=== PATIENT | female | born 1940 | race Caucasian/White ===

== ENCOUNTER → 2016-06-13 | Outpatient (CLI) | payer MEDICARE, OTHER ==
[~2016-06-13] VITALS: Ht 152.4 cm; Wt 72.5 kg
[~2016-06-13] MED LIST: ACET-66 PO; ALBU8.5H IH; AMLO-511 PO; APIX5TAB PO; ASPI-825 PO; BRIN8DRO OP; BUDE180H IH; LORA10TA7 PO; LOSA50TA37 PO; METO50 PO; MULT-1259 PO; OMEP20TA86 PO; ROSU10 PO; VITA1TAB22 PO
[2016-06-13 11:49] VITALS: BP 118/71
== END | disposition home or self-care (01) ==
LOC: SRCNTR 11:35
PROVIDERS: ATTEND Internal Medicine Critical Care Medicine
DX: J44.9 Chronic obstructive pulmonary disease, unspecified (principal); J30.9 Allergic rhinitis, unspecified; I10 Essential (primary) hypertension; N36.9 Urethral disorder, unspecified; M81.0 Age-related osteoporosis without current pathological fracture
CPT/HCPCS: G0463

== ENCOUNTER → 2016-08-08 | Outpatient (CLI) | payer MEDICARE, OTHER ==
[2016-08-08 14:07] LABS: APPEARANCE,URINE CLEAR (CLEAR); GLUCOSE, URINE (UA) NEGATIVE (NEGATIVE); KETONES,URINE NEGATIVE (NEGATIVE); LEUKOCYTE ESTERASE ,URINE NEGATIVE (NEGATIVE); OCCULT BLOOD,URINE NEGATIVE (NEGATIVE); PROTEIN,URINE NEGATIVE (NEGATIVE)
[2016-08-08 14:08] LABS: BASOPHILS % (AUTO) 0.6 % (0.0-2.0); EOSINOPHILS % (AUTO) 5.6 % (1.0-6.0); HEMATOCRIT 37.1 % (36-46); HEMOGLOBIN 11.9 g/dL (12.0-16.0); LYMPHOCYTES # (AUTO) 1.7 K/uL (1.0-4.8); LYMPHOCYTES % (AUTO) 29.1 % (22.0-44.0); MEAN CORPUSCULAR HEMOGLOBIN 27.2 pg (26.0-34.0); MEAN CORPUSCULAR HGB CONC 32.1 G/dL (31.0-37.0); MEAN CORPUSCULAR VOLUME 85 fL (80-100); MONOCYTES # (AUTO) 0.4 K/uL (0.1-1.0); MONOCYTES % (AUTO) 6.9 % (2.0-9.0); NEUTROPHILS # (AUTO) 3.4 K/uL (1.8-7.7); NEUTROPHILS % (AUTO) 57.8 % (40.0-70.0); PLATELET COUNT (AUTO) 192 K/uL (150-450); RED BLOOD CELL COUNT(AUTO) 4.36 MIL/uL (4.00-5.20); RED CELL DISTRIBUTION WIDTH 14.6 % (11.5-14.5); WHITE BLOOD COUNT (AUTO) 5.9 K/uL (4.5-11.0)
[2016-08-08 14:11] LABS: ADD UA MICROSCOPIC NO
[2016-08-08 14:26] LABS: ALBUMIN 3.9 g/dL (3.4-5.0); CALCIUM, TOTAL 9.1 mg/dL (8.8-10.5); CREATININE 0.98 mg/dL (0.60-1.30); PHOSPHORUS 3.9 mg/dL (2.5-4.9); POTASSIUM 3.8 mmol/L (3.5-5.1)
[2016-08-09 16:28] LABS: CREATININE, URINE (mALB) 87.7 mg/dL (Not Estab.)
== END | disposition home or self-care (01) ==
LOC: LABPV 11:57
PROVIDERS: ATTEND Internal Medicine Nephrology
DX: Z00.6 Encounter for examination for normal comparison and control in clinical research program (principal); N18.3 Chronic kidney disease, stage 3 (moderate); M48.00 Spinal stenosis, site unspecified
CPT/HCPCS: 82043; 82570; 82728; 83540; 83550; 84466

== ENCOUNTER → 2016-08-08 | Outpatient (CLI) | payer MEDICARE, OTHER ==
[~2016-08-08] MED LIST changes: -APIX5TAB PO
== END | disposition home or self-care (01) ==
LOC: RADPV 11:59
PROVIDERS: ATTEND Internal Medicine Critical Care Medicine
DX: J44.9 Chronic obstructive pulmonary disease, unspecified (principal); J98.11 Atelectasis; I70.0 Atherosclerosis of aorta
CPT/HCPCS: 71020

== ENCOUNTER → 2016-08-28 | Outpatient (CLI) | payer MEDICARE, OTHER ==
[~2016-08-28] VITALS: Ht 152.4 cm; Wt 72.4 kg
[~2016-08-28] MED LIST changes: +APIX5TAB PO
[2016-08-28 12:19] VITALS: BP 113/61
== END | disposition home or self-care (01) ==
LOC: SRCNTR 11:59
PROVIDERS: ATTEND Internal Medicine Critical Care Medicine
DX: I10 Essential (primary) hypertension (principal); J44.1 Chronic obstructive pulmonary disease with (acute) exacerbation; J30.9 Allergic rhinitis, unspecified; N36.9 Urethral disorder, unspecified; M81.0 Age-related osteoporosis without current pathological fracture; I48.92 Unspecified atrial flutter; H40.9 Unspecified glaucoma; Z77.22 Contact with and (suspected) exposure to environmental tobacco smoke (acute) (chronic)
CPT/HCPCS: G0463

== ENCOUNTER → 2016-09-12 | Outpatient (CLI) | payer MEDICARE, OTHER ==
[~2016-09-12] MED LIST changes: -ASPI-825 PO
== END | disposition home or self-care (01) ==
LOC: RESP 11:59
PROVIDERS: ATTEND Internal Medicine Critical Care Medicine
DX: J44.9 Chronic obstructive pulmonary disease, unspecified (principal)
CPT/HCPCS: 94010; 94726; 94727; 94729

== ENCOUNTER → 2016-09-30 | Outpatient (CLI) | payer MEDICARE, OTHER ==
[~2016-09-30] VITALS: Ht 152.4 cm; Wt 72.0 kg
[2016-09-30 12:24] VITALS: BP 127/64
== END | disposition home or self-care (01) ==
LOC: SRCNTR 12:21
PROVIDERS: ATTEND Internal Medicine Critical Care Medicine
DX: I10 Essential (primary) hypertension (principal); J44.1 Chronic obstructive pulmonary disease with (acute) exacerbation; J30.9 Allergic rhinitis, unspecified; N36.9 Urethral disorder, unspecified; M81.0 Age-related osteoporosis without current pathological fracture; I48.92 Unspecified atrial flutter; Z77.22 Contact with and (suspected) exposure to environmental tobacco smoke (acute) (chronic)
CPT/HCPCS: G0463

== ENCOUNTER → 2016-11-19 | Outpatient (CLI) | payer MEDICARE, OTHER ==
[~2016-11-19] MED LIST changes: -MULT-1259 PO
[2016-11-19 16:22] LABS: BASOPHILS % (AUTO) 0.6 % (0.0-2.0); EOSINOPHILS % (AUTO) 5.5 % (1.0-6.0); HEMATOCRIT 33.8 % (36-46); HEMOGLOBIN 11.3 g/dL (12.0-16.0); LYMPHOCYTES # (AUTO) 1.7 K/uL (1.0-4.8); MEAN CORPUSCULAR HEMOGLOBIN 28.3 pg (26.0-34.0); MEAN CORPUSCULAR HGB CONC 33.5 G/dL (31.0-37.0); MEAN CORPUSCULAR VOLUME 84 fL (80-100); MONOCYTES # (AUTO) 0.5 K/uL (0.1-1.0); MONOCYTES % (AUTO) 9.1 % (2.0-9.0); NEUTROPHILS # (AUTO) 2.7 K/uL (1.8-7.7); NEUTROPHILS % (AUTO) 52.8 % (40.0-70.0); PLATELET COUNT (AUTO) 193 K/uL (150-450); RED BLOOD CELL COUNT(AUTO) 4.01 MIL/uL (4.00-5.20); RED CELL DISTRIBUTION WIDTH 15.2 % (11.5-14.5); WHITE BLOOD COUNT (AUTO) 5.2 K/uL (4.5-11.0)
[2016-11-19 16:25] LABS: APPEARANCE,URINE CLOUDY (CLEAR); GLUCOSE, URINE (UA) NEGATIVE (NEGATIVE); KETONES,URINE NEGATIVE (NEGATIVE); LEUKOCYTE ESTERASE ,URINE NEGATIVE (NEGATIVE); OCCULT BLOOD,URINE TRACE (NEGATIVE); PROTEIN,URINE NEGATIVE (NEGATIVE)
[2016-11-19 16:33] LABS: ADD UA MICROSCOPIC YES
[2016-11-19 16:34] LABS: RBC,URINE 0-2 /HPF (0-2); SQUAMOUS EPITHELIAL CELL,UR Few /LPF (None Seen); WBC,URINE None Seen /HPF (0-5)
[2016-11-19 16:41] LABS: HEMOGLOBIN A1C 5.4 % (4.5-6.2)
[2016-11-19 17:11] LABS: ALBUMIN 3.7 g/dL (3.4-5.0); CALCIUM, TOTAL 9.1 mg/dL (8.8-10.5); CREATININE 1.22 mg/dL (0.60-1.30); MAGNESIUM 1.7 mg/dL (1.80-2.40); PHOSPHORUS 3.7 mg/dL (2.5-4.9); POTASSIUM 4.2 mmol/L (3.5-5.1)
== END | disposition home or self-care (01) ==
LOC: LABPV 14:13
PROVIDERS: ATTEND Internal Medicine Nephrology
DX: N18.3 Chronic kidney disease, stage 3 (moderate) (principal); M48.00 Spinal stenosis, site unspecified; J45.20 Mild intermittent asthma, uncomplicated; Z79.899 Other long term (current) drug therapy
CPT/HCPCS: 82043; 82570; 83036; 83735; 84156

== ENCOUNTER → 2017-01-10 | Outpatient (CLI) | payer MEDICARE, OTHER ==
[~2017-01-10] MED LIST changes: -ALBU8.5H IH; +ALBU8.5H8 IH; +DRON400T PO; +OMEP20TA25 PO; -OMEP20TA86 PO; +PANT40TA25 PO; +VITAD1000 PO
[2017-01-10 10:57] LABS: BASOPHILS % (AUTO) 0.9 % (0.0-2.0); EOSINOPHILS % (AUTO) 5.4 % (1.0-6.0); HEMATOCRIT 34.8 % (36-46); HEMOGLOBIN 11.7 g/dL (12.0-16.0); LYMPHOCYTES # (AUTO) 1.4 K/uL (1.0-4.8); LYMPHOCYTES % (AUTO) 36.1 % (22.0-44.0); MEAN CORPUSCULAR HEMOGLOBIN 28.3 pg (26.0-34.0); MEAN CORPUSCULAR HGB CONC 33.5 G/dL (31.0-37.0); MEAN CORPUSCULAR VOLUME 84 fL (80-100); MONOCYTES # (AUTO) 0.3 K/uL (0.1-1.0); MONOCYTES % (AUTO) 6.9 % (2.0-9.0); NEUTROPHILS % (AUTO) 50.7 % (40.0-70.0); PLATELET COUNT (AUTO) 158 K/uL (150-450); RED BLOOD CELL COUNT(AUTO) 4.12 MIL/uL (4.00-5.20); RED CELL DISTRIBUTION WIDTH 15.5 % (11.5-14.5)
[2017-01-10 11:06] LABS: ALBUMIN 3.8 g/dL (3.4-5.0); BILIRUBIN,TOTAL 0.6 mg/dL (0.1-1.0); CALCIUM, TOTAL 8.6 mg/dL (8.8-10.5); CHOL/HDL RATIO 2.2 (3.9-5.7); CREATININE 1.19 mg/dL (0.60-1.30); POTASSIUM 4.1 mmol/L (3.5-5.1); TOTAL PROTEIN, SERUM 7.4 g/dL (6.4-8.2)
== END | disposition home or self-care (01) ==
LOC: LABPV 09:34
PROVIDERS: ATTEND Nurse Practitioner
DX: E78.4 Other hyperlipidemia (principal); E55.9 Vitamin D deficiency, unspecified
CPT/HCPCS: 82306

== ENCOUNTER → 2017-01-21 | Outpatient (CLI) | payer MEDICARE, OTHER | END | disposition home or self-care (01) | LOC: LABPV 12:16 | PROVIDERS: ATTEND Family Medicine | DX: M75.82 Other shoulder lesions, left shoulder (principal); M75.81 Other shoulder lesions, right shoulder ==

== ENCOUNTER → 2017-01-29 | Outpatient (CLI) | payer MEDICARE, OTHER ==
[~2017-01-29] VITALS: Ht 152.4 cm; Wt 71.7 kg
[2017-01-29 14:07] VITALS: BP 143/68
== END | disposition home or self-care (01) ==
LOC: SRCNTR 13:43
PROVIDERS: ATTEND Internal Medicine Critical Care Medicine
DX: I10 Essential (primary) hypertension (principal); J44.1 Chronic obstructive pulmonary disease with (acute) exacerbation; J30.9 Allergic rhinitis, unspecified; N36.9 Urethral disorder, unspecified; M81.0 Age-related osteoporosis without current pathological fracture; I48.92 Unspecified atrial flutter; Z87.891 Personal history of nicotine dependence
CPT/HCPCS: G0463

== ENCOUNTER → 2017-04-22 | Outpatient (CLI) | payer MEDICARE, OTHER ==
[~2017-04-22] MED LIST changes: -ALBU8.5H8 IH; -AMLO-511 PO; -OMEP20TA25 PO; -VITA1TAB22 PO
[2017-04-22 12:25] LABS: BASOPHILS # (AUTO) 0.03 K/uL (0.00-0.20); BASOPHILS % (AUTO) 0.7 % (0.0-2.0); EOSINOPHILS # (AUTO) 0.24 K/uL (0.00-0.70); HEMATOCRIT 34.4 % (36-46); HEMOGLOBIN 11.5 g/dL (12.0-16.0); LYMPHOCYTES # (AUTO) 1.6 K/uL (1.0-4.8); LYMPHOCYTES % (AUTO) 38.4 % (22.0-44.0); MEAN CORPUSCULAR HEMOGLOBIN 28.4 pg (26.0-34.0); MEAN CORPUSCULAR HGB CONC 33.3 G/dL (31.0-37.0); MEAN CORPUSCULAR VOLUME 85 fL (80-100); MONOCYTES # (AUTO) 0.3 K/uL (0.1-1.0); MONOCYTES % (AUTO) 6.5 % (2.0-9.0); NEUTROPHILS # (AUTO) 2.1 K/uL (1.8-7.7); NEUTROPHILS % (AUTO) 48.7 % (40.0-70.0); PLATELET COUNT (AUTO) 151 K/uL (150-450); RED BLOOD CELL COUNT(AUTO) 4.04 MIL/uL (4.00-5.20)
[2017-04-22 12:41] LABS: ALBUMIN 3.5 g/dL (3.4-5.0); BILIRUBIN,TOTAL 0.5 mg/dL (0.1-1.0); CALCIUM, TOTAL 8.7 mg/dL (8.8-10.5); CHOL/HDL RATIO 2.5 (3.9-5.7); CREATININE 0.93 mg/dL (0.60-1.30); POTASSIUM 3.6 mmol/L (3.5-5.1); TOTAL PROTEIN, SERUM 7.1 g/dL (6.4-8.2)
== END | disposition home or self-care (01) ==
LOC: LABPV 10:41
PROVIDERS: ATTEND Family Medicine
DX: I12.9 Hypertensive chronic kidney disease with stage 1 through stage 4 chronic kidney disease, or unspecified chronic kidney disease (principal); N18.3 Chronic kidney disease, stage 3 (moderate); E78.4 Other hyperlipidemia; Z86.73 Personal history of transient ischemic attack (TIA), and cerebral infarction without residual deficits

== ENCOUNTER → 2017-05-15 | Outpatient (CLI) | payer MEDICARE, OTHER ==
[2017-05-15 14:10] LABS: ALBUMIN 3.6 g/dL (3.4-5.0); ANION GAP 8 mmol/L (8-16); CALCIUM, TOTAL 8.8 mg/dL (8.8-10.5); CARBON DIOXIDE 27 mmol/L (22-29); CHLORIDE 107 mmol/L (98-107); CREATININE 0.74 mg/dL (0.60-1.30); GLOMERULAR FILTR. RATE CALC > 60 mL/min (>60); GLUCOSE,RANDOM 102 mg/dL (70-110); POTASSIUM 4.1 mmol/L (3.5-5.1); SODIUM SERUM 142 mmol/L (136-145); UREA NITROGEN, BLOOD 20 mg/dL (7-18)
[2017-05-15 14:12] LABS: BASOPHILS % (AUTO) 0.6 % (0.0-2.0); HEMATOCRIT 35.7 % (36-46); HEMOGLOBIN 11.8 g/dL (12.0-16.0); LYMPHOCYTES # (AUTO) 1.8 K/uL (1.0-4.8); LYMPHOCYTES % (AUTO) 30.1 % (22.0-44.0); MEAN CORPUSCULAR HGB CONC 33.1 G/dL (31.0-37.0); MEAN CORPUSCULAR VOLUME 85 fL (80-100); MONOCYTES # (AUTO) 0.5 K/uL (0.1-1.0); MONOCYTES % (AUTO) 8.7 % (2.0-9.0); NEUTROPHILS # (AUTO) 3.4 K/uL (1.8-7.7); NEUTROPHILS % (AUTO) 55.6 % (40.0-70.0); PLATELET COUNT (AUTO) 161 K/uL (150-450); RED BLOOD CELL COUNT(AUTO) 4.22 MIL/uL (4.00-5.20); RED CELL DISTRIBUTION WIDTH 14.9 % (11.5-14.5)
[2017-05-15 14:23] LABS: APPEARANCE,URINE CLEAR (CLEAR); BILIRUBIN,URINE NEGATIVE (NEGATIVE); GLUCOSE, URINE (UA) NEGATIVE (NEGATIVE); KETONES,URINE NEGATIVE (NEGATIVE); LEUKOCYTE ESTERASE ,URINE NEGATIVE (NEGATIVE); NITRATE,URINE NEGATIVE (NEGATIVE); OCCULT BLOOD,URINE TRACE (NEGATIVE); PROTEIN,URINE NEGATIVE (NEGATIVE); UROBILINOGEN,URINE 0.2 mg/dL (<=1.0)
[2017-05-15 14:59] LABS: RBC,URINE 0-2 /HPF (0-2); WBC,URINE 0-2 /HPF (0-5)
[2017-05-15 15:00] LABS: BACTERIA,URINE None Seen /HPF (None Seen)
[2017-05-15 15:02] LABS: SQUAMOUS EPITHELIAL CELL,UR Rare /LPF (None Seen)
== END | disposition home or self-care (01) ==
LOC: LABPV 13:16
PROVIDERS: ATTEND Internal Medicine Nephrology
DX: I12.9 Hypertensive chronic kidney disease with stage 1 through stage 4 chronic kidney disease, or unspecified chronic kidney disease (principal); N18.3 Chronic kidney disease, stage 3 (moderate); D63.1 Anemia in chronic kidney disease
CPT/HCPCS: 82043; 82570; 83735

== ENCOUNTER → 2017-06-03 | Outpatient (CLI) | payer MEDICARE, OTHER ==
[~2017-06-03] VITALS: Ht 152.4 cm; Wt 77.0 kg
[~2017-06-03] MED LIST changes: +AMLO-511 PO; +CARV6 PO
[2017-06-03 12:08] VITALS: BP 130/62
== END | disposition home or self-care (01) ==
LOC: SRCNTR 12:08
PROVIDERS: ATTEND Internal Medicine Critical Care Medicine
DX: J44.1 Chronic obstructive pulmonary disease with (acute) exacerbation (principal); J30.9 Allergic rhinitis, unspecified; I10 Essential (primary) hypertension; N36.9 Urethral disorder, unspecified; M81.0 Age-related osteoporosis without current pathological fracture; I48.92 Unspecified atrial flutter
CPT/HCPCS: G0463

== ENCOUNTER → 2017-07-21 | Outpatient (CLI) | payer MEDICARE, OTHER ==
[~2017-07-21] MED LIST changes: -DRON400T PO; -METO50 PO; -VITAD1000 PO
[2017-07-21 11:33] LABS: EOSINOPHILS % (AUTO) 4.8 % (1.0-6.0); HEMATOCRIT 33.4 % (36-46); HEMOGLOBIN 11.2 g/dL (12.0-16.0); LYMPHOCYTES # (AUTO) 1.6 K/uL (1.0-4.8); LYMPHOCYTES % (AUTO) 37.9 % (22.0-44.0); MEAN CORPUSCULAR HEMOGLOBIN 28.2 pg (26.0-34.0); MEAN CORPUSCULAR HGB CONC 33.4 G/dL (31.0-37.0); MEAN CORPUSCULAR VOLUME 84 fL (80-100); MONOCYTES # (AUTO) 0.4 K/uL (0.1-1.0); MONOCYTES % (AUTO) 9.1 % (2.0-9.0); NEUTROPHILS % (AUTO) 47.2 % (40.0-70.0); PLATELET COUNT (AUTO) 161 K/uL (150-450); RED BLOOD CELL COUNT(AUTO) 3.96 MIL/uL (4.00-5.20); RED CELL DISTRIBUTION WIDTH 14.5 % (11.5-14.5)
[2017-07-21 11:41] LABS: APPEARANCE,URINE CLEAR (CLEAR); BILIRUBIN,URINE NEGATIVE (NEGATIVE); GLUCOSE, URINE (UA) NEGATIVE (NEGATIVE); KETONES,URINE NEGATIVE (NEGATIVE); LEUKOCYTE ESTERASE ,URINE NEGATIVE (NEGATIVE); NITRATE,URINE NEGATIVE (NEGATIVE); OCCULT BLOOD,URINE TRACE (NEGATIVE); PH,URINE 6.5 (5.0-8.0); PROTEIN,URINE NEGATIVE (NEGATIVE); UROBILINOGEN,URINE 0.2 mg/dL (<=1.0)
[2017-07-21 11:56] LABS: ALANINE AMINOTRANSFERASE 25 U/L (12-78); ALBUMIN 3.6 g/dL (3.4-5.0); ALKALINE PHOSPHATASE 68 U/L (46-116); ANION GAP 8 mmol/L (8-16); ASPARTATE AMINOTRANSFERASE 21 U/L (15-37); BILIRUBIN,TOTAL 0.6 mg/dL (0.1-1.0); CALCIUM, TOTAL 8.8 mg/dL (8.8-10.5); CARBON DIOXIDE 27 mmol/L (22-29); CHLORIDE 108 mmol/L (98-107); CHOL/HDL RATIO 2.5 (3.9-5.7); CHOLESTEROL 145 mg/dL (131-200); CREATININE 0.89 mg/dL (0.60-1.30); GLOMERULAR FILTR. RATE CALC > 60 mL/min (>60); GLUCOSE,RANDOM 96 mg/dL (70-110); HDL CHOLESTEROL 58 mg/dL (40-60); LDL CHOL (CALC.) 68 mg/dL (0-130); PHOSPHORUS 3.1 mg/dL (2.5-4.9); POTASSIUM 4.2 mmol/L (3.5-5.1); SODIUM SERUM 143 mmol/L (136-145); TOTAL PROTEIN, SERUM 7.2 g/dL (6.4-8.2); TRIGLYCERIDES 96 mg/dL (15-150); UREA NITROGEN, BLOOD 19 mg/dL (7-18)
[2017-07-21 12:42] LABS: BACTERIA,URINE Rare /HPF (None Seen); SQUAMOUS EPITHELIAL CELL,UR Rare /LPF (None Seen); WBC,URINE 0-2 /HPF (0-5)
== END | disposition home or self-care (01) ==
LOC: LABPV 09:57
PROVIDERS: ATTEND Internal Medicine Nephrology
DX: N18.3 Chronic kidney disease, stage 3 (moderate) (principal); D63.1 Anemia in chronic kidney disease; R79.89 Other specified abnormal findings of blood chemistry
CPT/HCPCS: 82043; 82570; 83735

== ENCOUNTER → 2017-08-20 | Outpatient (CLI) | payer MEDICARE, OTHER ==
[~2017-08-20] VITALS: Ht 152.4 cm; Wt 79.0 kg
[~2017-08-20] MED LIST changes: +OMEP20 PO
[2017-08-20 11:55] VITALS: BP 130/59
== END | disposition home or self-care (01) ==
LOC: SRCNTR 11:21
PROVIDERS: ATTEND Internal Medicine Critical Care Medicine
DX: J44.1 Chronic obstructive pulmonary disease with (acute) exacerbation (principal); J30.9 Allergic rhinitis, unspecified; I10 Essential (primary) hypertension; N36.9 Urethral disorder, unspecified; M81.0 Age-related osteoporosis without current pathological fracture
CPT/HCPCS: G0463

== ENCOUNTER → 2017-08-28 | Outpatient (CLI) | payer MEDICARE, OTHER | END | disposition home or self-care (01) | LOC: RADPV 11:20 | PROVIDERS: ATTEND Internal Medicine Critical Care Medicine | DX: I70.0 Atherosclerosis of aorta (principal); R91.8 Other nonspecific abnormal finding of lung field; J44.1 Chronic obstructive pulmonary disease with (acute) exacerbation | CPT/HCPCS: 71046 ==

== ENCOUNTER → 2017-10-20 | Outpatient (CLI) | payer MEDICARE, OTHER ==
[~2017-10-20] VITALS: Ht 152.4 cm; Wt 79.5 kg
[2017-10-20 11:58] VITALS: BP 131/57
== END | disposition home or self-care (01) ==
LOC: SRCNTR 11:58
PROVIDERS: ATTEND Internal Medicine Critical Care Medicine
DX: J44.1 Chronic obstructive pulmonary disease with (acute) exacerbation (principal); J30.9 Allergic rhinitis, unspecified; I10 Essential (primary) hypertension; N36.9 Urethral disorder, unspecified; M81.0 Age-related osteoporosis without current pathological fracture
CPT/HCPCS: G0463

== ENCOUNTER → 2017-10-23 | Outpatient (CLI) | payer MEDICARE, OTHER ==
[2017-10-23 10:41] LABS: BASOPHILS % (AUTO) 0.9 % (0.0-2.0); EOSINOPHILS % (AUTO) 5.3 % (1.0-6.0); HEMATOCRIT 33.3 % (36-46); HEMOGLOBIN 11.2 g/dL (12.0-16.0); LYMPHOCYTES # (AUTO) 1.4 K/uL (1.0-4.8); LYMPHOCYTES % (AUTO) 32.6 % (22.0-44.0); MEAN CORPUSCULAR HEMOGLOBIN 28.1 pg (26.0-34.0); MEAN CORPUSCULAR HGB CONC 33.6 G/dL (31.0-37.0); MEAN CORPUSCULAR VOLUME 84 fL (80-100); MONOCYTES # (AUTO) 0.4 K/uL (0.1-1.0); MONOCYTES % (AUTO) 10.1 % (2.0-9.0); NEUTROPHILS # (AUTO) 2.3 K/uL (1.8-7.7); NEUTROPHILS % (AUTO) 51.1 % (40.0-70.0); PLATELET COUNT (AUTO) 179 K/uL (150-450); RED BLOOD CELL COUNT(AUTO) 3.99 MIL/uL (4.00-5.20); RED CELL DISTRIBUTION WIDTH 14.9 % (11.5-14.5)
[2017-10-23 11:11] LABS: ALBUMIN 3.6 g/dL (3.4-5.0); BILIRUBIN,TOTAL 0.7 mg/dL (0.1-1.0); CALCIUM, TOTAL 8.9 mg/dL (8.8-10.5); CHOL/HDL RATIO 2.7 (3.9-5.7); CREATININE 1.02 mg/dL (0.60-1.30); POTASSIUM 4.4 mmol/L (3.5-5.1); TOTAL PROTEIN, SERUM 7.2 g/dL (6.4-8.2)
== END | disposition home or self-care (01) ==
LOC: LABPV 10:08
PROVIDERS: ATTEND Family Medicine
DX: I12.9 Hypertensive chronic kidney disease with stage 1 through stage 4 chronic kidney disease, or unspecified chronic kidney disease (principal); N18.3 Chronic kidney disease, stage 3 (moderate); E78.4 Other hyperlipidemia; J44.9 Chronic obstructive pulmonary disease, unspecified; I48.1 Persistent atrial fibrillation

== ENCOUNTER → 2017-10-31 | Outpatient (CLI) | payer MEDICARE, OTHER | END | disposition home or self-care (01) | LOC: RADPV 12:42 | PROVIDERS: ATTEND Family Medicine | DX: M17.12 Unilateral primary osteoarthritis, left knee (principal); M19.012 Primary osteoarthritis, left shoulder; M75.92 Shoulder lesion, unspecified, left shoulder; G89.29 Other chronic pain; I13.0 Hypertensive heart and chronic kidney disease with heart failure and stage 1 through stage 4 chronic kidney disease, or unspecified chronic kidney disease; E78.5 Hyperlipidemia, unspecified; I50.9 Heart failure, unspecified; N18.3 Chronic kidney disease, stage 3 (moderate); K21.9 Gastro-esophageal reflux disease without esophagitis; I48.1 Persistent atrial fibrillation ==

== ENCOUNTER → 2017-11-03 | Outpatient (CLI) | payer MEDICARE, OTHER | END | disposition home or self-care (01) | LOC: RADPV 12:44 | PROVIDERS: ATTEND Family Medicine | DX: I70.212 Atherosclerosis of native arteries of extremities with intermittent claudication, left leg (principal); M71.22 Synovial cyst of popliteal space [Baker], left knee; J45.909 Unspecified asthma, uncomplicated; E78.5 Hyperlipidemia, unspecified; K21.9 Gastro-esophageal reflux disease without esophagitis | CPT/HCPCS: 93926; 93971 ==

== ENCOUNTER → 2018-01-05 | Outpatient (CLI) | payer MEDICARE, OTHER ==
[~2018-01-05] VITALS: Ht 152.4 cm; Wt 78.5 kg
[~2018-01-05] MED LIST changes: +LOSA50TA25 PO; -LOSA50TA37 PO
[2018-01-05 13:23] VITALS: BP 135/64
== END | disposition home or self-care (01) ==
LOC: SRCNTR 13:19
PROVIDERS: ATTEND Internal Medicine Critical Care Medicine
DX: J44.1 Chronic obstructive pulmonary disease with (acute) exacerbation (principal); J30.9 Allergic rhinitis, unspecified; I10 Essential (primary) hypertension; N36.9 Urethral disorder, unspecified; M81.0 Age-related osteoporosis without current pathological fracture
CPT/HCPCS: G0463

== ENCOUNTER → 2018-01-27 | Outpatient (CLI) | payer MEDICARE, OTHER ==
[2018-01-27 12:11] LABS: ALBUMIN 3.7 g/dL (3.4-5.0); BILIRUBIN,TOTAL 0.5 mg/dL (0.1-1.0); CALCIUM, TOTAL 8.7 mg/dL (8.8-10.5); CREATININE 1.03 mg/dL (0.60-1.30); POTASSIUM 3.8 mmol/L (3.5-5.1); TOTAL PROTEIN, SERUM 7.9 g/dL (6.4-8.2)
== END | disposition home or self-care (01) ==
LOC: LABPV 10:14
PROVIDERS: ATTEND Family Medicine
DX: I12.9 Hypertensive chronic kidney disease with stage 1 through stage 4 chronic kidney disease, or unspecified chronic kidney disease (principal); N18.3 Chronic kidney disease, stage 3 (moderate); E78.49 Other hyperlipidemia; I48.1 Persistent atrial fibrillation

== ENCOUNTER → 2018-01-27 | Outpatient (CLI) | payer MEDICARE, OTHER ==
[2018-01-27 12:00] LABS: BASOPHILS % (AUTO) 0.6 % (0.0-2.0); EOSINOPHILS % (AUTO) 4.5 % (1.0-6.0); HEMATOCRIT 36.9 % (36-46); HEMOGLOBIN 12.3 g/dL (12.0-16.0); LYMPHOCYTES # (AUTO) 1.4 K/uL (1.0-4.8); LYMPHOCYTES % (AUTO) 28.1 % (22.0-44.0); MEAN CORPUSCULAR HEMOGLOBIN 27.8 pg (26.0-34.0); MEAN CORPUSCULAR HGB CONC 33.2 G/dL (31.0-37.0); MEAN CORPUSCULAR VOLUME 84 fL (80-100); MONOCYTES # (AUTO) 0.3 K/uL (0.1-1.0); MONOCYTES % (AUTO) 6.6 % (2.0-9.0); NEUTROPHILS % (AUTO) 60.2 % (40.0-70.0); PLATELET COUNT (AUTO) 200 K/uL (150-450); RED BLOOD CELL COUNT(AUTO) 4.41 MIL/uL (4.00-5.20); RED CELL DISTRIBUTION WIDTH 15.4 % (11.5-14.5)
[2018-01-27 12:08] LABS: HEMOGLOBIN A1C 5.4 % (4.5-6.2)
[2018-01-27 12:17] LABS: % IRON SATURATION 17.7 % (22-44)
[2018-01-27 12:23] LABS: ALBUMIN 3.7 g/dL (3.4-5.0); CALCIUM, TOTAL 8.8 mg/dL (8.8-10.5); CHOL/HDL RATIO 2.4 (3.9-5.7); CREATININE 1.01 mg/dL (0.60-1.30); MAGNESIUM 1.9 mg/dL (1.80-2.40); PHOSPHORUS 3.4 mg/dL (2.5-4.9); POTASSIUM 3.8 mmol/L (3.5-5.1); THYROID STIMULATING HORMONE 2.02 uIU/mL (0.36-3.74)
[2018-01-27 12:54] LABS: FOLATE SERUM 21.8 ng/mL (5.4-)
[2018-01-27 17:38] LABS: APPEARANCE,URINE CLEAR (CLEAR); BILIRUBIN,URINE NEGATIVE (NEGATIVE); GLUCOSE, URINE (UA) NEGATIVE (NEGATIVE); KETONES,URINE NEGATIVE (NEGATIVE); LEUKOCYTE ESTERASE ,URINE NEGATIVE (NEGATIVE); NITRATE,URINE NEGATIVE (NEGATIVE); OCCULT BLOOD,URINE SMALL (NEGATIVE); PROTEIN,URINE NEGATIVE (NEGATIVE); UROBILINOGEN,URINE 0.2 mg/dL (<=1.0)
[2018-01-27 18:08] LABS: BACTERIA,URINE Rare /HPF (None Seen); SQUAMOUS EPITHELIAL CELL,UR Few /LPF (None Seen); WBC,URINE 0-2 /HPF (0-5)
== END | disposition home or self-care (01) ==
LOC: LABPV 10:11
PROVIDERS: ATTEND Internal Medicine Nephrology
DX: I12.9 Hypertensive chronic kidney disease with stage 1 through stage 4 chronic kidney disease, or unspecified chronic kidney disease (principal); N18.3 Chronic kidney disease, stage 3 (moderate); E55.9 Vitamin D deficiency, unspecified; R73.09 Other abnormal glucose; I47.1 Supraventricular tachycardia
CPT/HCPCS: 82043; 82306; 82570; 82607; 82728; 82746; 83036; 83540; 83550; 83735; 83970; 84443; 84466; 85045

== ENCOUNTER → 2018-05-12 | Outpatient (CLI) | payer MEDICARE, OTHER ==
[~2018-05-12] VITALS: Ht 152.4 cm; Wt 81.0 kg
[~2018-05-12] MED LIST changes: -LOSA50TA25 PO; +LOSA50TA64 PO
[2018-05-12 11:48] VITALS: BP 114/60
== END | disposition home or self-care (01) ==
LOC: SRCNTR 10:59
PROVIDERS: ATTEND Internal Medicine Critical Care Medicine
DX: I10 Essential (primary) hypertension (principal); J44.1 Chronic obstructive pulmonary disease with (acute) exacerbation; J30.9 Allergic rhinitis, unspecified; M81.0 Age-related osteoporosis without current pathological fracture; I48.91 Unspecified atrial fibrillation
CPT/HCPCS: G0463

== ENCOUNTER → 2018-05-28 | Outpatient (CLI) | payer MEDICARE, OTHER ==
[2018-05-28 11:05] LABS: BASOPHILS % (AUTO) 1.2 % (0.0-2.0); EOSINOPHILS % (AUTO) 9.1 % (1.0-6.0); HEMATOCRIT 35.6 % (36-46); HEMOGLOBIN 11.8 g/dL (12.0-16.0); LYMPHOCYTES # (AUTO) 1.6 K/uL (1.0-4.8); MEAN CORPUSCULAR HEMOGLOBIN 27.4 pg (26.0-34.0); MEAN CORPUSCULAR HGB CONC 33.1 G/dL (31.0-37.0); MEAN CORPUSCULAR VOLUME 83 fL (80-100); MONOCYTES # (AUTO) 0.4 K/uL (0.1-1.0); MONOCYTES % (AUTO) 8.4 % (2.0-9.0); NEUTROPHILS # (AUTO) 2.1 K/uL (1.8-7.7); NEUTROPHILS % (AUTO) 46.3 % (40.0-70.0); PLATELET COUNT (AUTO) 189 K/uL (150-450); RED CELL DISTRIBUTION WIDTH 15.1 % (11.5-14.5)
[2018-05-28 11:28] LABS: ALBUMIN 3.4 g/dL (3.4-5.0); BILIRUBIN,TOTAL 0.4 mg/dL (0.1-1.0); TOTAL PROTEIN, SERUM 7.1 g/dL (6.4-8.2)
== END | disposition home or self-care (01) ==
LOC: LABPV 08:22
PROVIDERS: ATTEND Family Medicine
DX: E55.9 Vitamin D deficiency, unspecified (principal); I13.0 Hypertensive heart and chronic kidney disease with heart failure and stage 1 through stage 4 chronic kidney disease, or unspecified chronic kidney disease; N18.9 Chronic kidney disease, unspecified; I50.9 Heart failure, unspecified; E78.49 Other hyperlipidemia; I48.1 Persistent atrial fibrillation
CPT/HCPCS: 82306

== ENCOUNTER → 2018-09-15 | Outpatient (CLI) | payer MEDICARE, OTHER ==
[~2018-09-15] MED LIST changes: -ROSU10 PO; +ROSU10TA22 PO
== END | disposition home or self-care (01) ==
LOC: RADPV 10:34
PROVIDERS: ATTEND Internal Medicine Critical Care Medicine
DX: I70.0 Atherosclerosis of aorta (principal); J44.1 Chronic obstructive pulmonary disease with (acute) exacerbation

== ENCOUNTER → 2018-11-03 | Outpatient (CLI) | payer MEDICARE, OTHER ==
[~2018-11-03] MED LIST changes: -AMLO-511 PO; +AMLO5TAB9 PO
[2018-11-03 12:56] LABS: BASOPHILS % (AUTO) 0.6 % (0.0-2.0); EOSINOPHILS % (AUTO) 2.5 % (1.0-6.0); HEMATOCRIT 33.2 % (36-46); LYMPHOCYTES # (AUTO) 1.5 K/uL (1.0-4.8); LYMPHOCYTES % (AUTO) 18.6 % (22.0-44.0); MEAN CORPUSCULAR HEMOGLOBIN 27.9 pg (26.0-34.0); MEAN CORPUSCULAR HGB CONC 33.3 G/dL (31.0-37.0); MEAN CORPUSCULAR VOLUME 84 fL (80-100); MONOCYTES # (AUTO) 0.5 K/uL (0.1-1.0); MONOCYTES % (AUTO) 6.7 % (2.0-9.0); NEUTROPHILS # (AUTO) 5.6 K/uL (1.8-7.7); NEUTROPHILS % (AUTO) 71.6 % (40.0-70.0); PLATELET COUNT (AUTO) 226 K/uL (150-450); RED BLOOD CELL COUNT(AUTO) 3.95 MIL/uL (4.00-5.20); RED CELL DISTRIBUTION WIDTH 16.9 % (11.5-14.5)
[2018-11-03 13:14] LABS: ALANINE AMINOTRANSFERASE 19 U/L (12-78); ALKALINE PHOSPHATASE 80 U/L (46-116); ANION GAP 8 mmol/L (8-16); ASPARTATE AMINOTRANSFERASE 18 U/L (15-37); BILIRUBIN,TOTAL 0.4 mg/dL (0.1-1.0); CALCIUM, TOTAL 8.9 mg/dL (8.8-10.5); CARBON DIOXIDE 27 mmol/L (22-29); CHLORIDE 105 mmol/L (98-107); CREATININE 0.86 mg/dL (0.60-1.30); GLUCOSE,RANDOM 103 mg/dL (70-110); POTASSIUM 3.6 mmol/L (3.5-5.1); SODIUM SERUM 140 mmol/L (136-145); UREA NITROGEN, BLOOD 13 mg/dL (7-18)
[2018-11-03 13:19] LABS: GLOMERULAR FILTR. RATE CALC > 60 mL/min (>60)
[2018-11-03 13:37] LABS: APPEARANCE,URINE CLEAR (CLEAR); BILIRUBIN,URINE NEGATIVE (NEGATIVE); GLUCOSE, URINE (UA) NEGATIVE (NEGATIVE); KETONES,URINE NEGATIVE (NEGATIVE); LEUKOCYTE ESTERASE ,URINE NEGATIVE (NEGATIVE); NITRATE,URINE NEGATIVE (NEGATIVE); OCCULT BLOOD,URINE TRACE (NEGATIVE); PH,URINE 5.5 (5.0-8.0); PROTEIN,URINE NEGATIVE (NEGATIVE); UROBILINOGEN,URINE 0.2 mg/dL (<=1.0)
[2018-11-03 13:47] LABS: RBC,URINE 0-2 /HPF (0-2)
[2018-11-03 13:48] LABS: BACTERIA,URINE None Seen /HPF (None Seen); SQUAMOUS EPITHELIAL CELL,UR Few /LPF (None Seen); WBC,URINE None Seen /HPF (0-5)
== END | disposition home or self-care (01) ==
LOC: LABPV 11:54
PROVIDERS: ATTEND Internal Medicine Nephrology
DX: I12.9 Hypertensive chronic kidney disease with stage 1 through stage 4 chronic kidney disease, or unspecified chronic kidney disease (principal); N18.3 Chronic kidney disease, stage 3 (moderate); I47.1 Supraventricular tachycardia
CPT/HCPCS: 82043; 82570

== ENCOUNTER → 2018-12-02 | Outpatient (CLI) | payer MEDICARE, OTHER | END | disposition home or self-care (01) | LOC: RADMN 14:09 | PROVIDERS: ATTEND Nurse Practitioner | DX: M48.061 Spinal stenosis, lumbar region without neurogenic claudication (principal); M46.87 Other specified inflammatory spondylopathies, lumbosacral region | CPT/HCPCS: 72148 ==

== ENCOUNTER → 2019-03-19 | Outpatient (CLI) | payer MEDICARE, OTHER ==
[~2019-03-19] MED LIST changes: +DRON400T PO; +LOSA-88 PO; -LOSA50TA64 PO; +METH1TAB2 PO; +METO25 PO
[2019-03-19 11:40] LABS: BASOPHILS % (AUTO) 0.7 % (0.0-2.0); EOSINOPHILS % (AUTO) 5.3 % (1.0-6.0); HEMATOCRIT 34.9 % (36-46); HEMOGLOBIN 11.4 g/dL (12.0-16.0); LYMPHOCYTES # (AUTO) 1.5 K/uL (1.0-4.8); LYMPHOCYTES % (AUTO) 28.2 % (22.0-44.0); MEAN CORPUSCULAR HEMOGLOBIN 27.2 pg (26.0-34.0); MEAN CORPUSCULAR HGB CONC 32.6 G/dL (31.0-37.0); MEAN CORPUSCULAR VOLUME 83 fL (80-100); MONOCYTES # (AUTO) 0.4 K/uL (0.1-1.0); NEUTROPHILS % (AUTO) 58.8 % (40.0-70.0); PLATELET COUNT (AUTO) 204 K/uL (150-450); RED BLOOD CELL COUNT(AUTO) 4.19 MIL/uL (4.00-5.20); RED CELL DISTRIBUTION WIDTH 15.9 % (11.5-14.5)
[2019-03-19 12:34] LABS: ALANINE AMINOTRANSFERASE 18 U/L (12-78); ALBUMIN 3.6 g/dL (3.4-5.0); ALKALINE PHOSPHATASE 73 U/L (46-116); ANION GAP 8 mmol/L (8-16); ASPARTATE AMINOTRANSFERASE 19 U/L (15-37); BILIRUBIN,TOTAL 0.5 mg/dL (0.1-1.0); CALCIUM, TOTAL 8.6 mg/dL (8.8-10.5); CARBON DIOXIDE 27 mmol/L (22-29); CHLORIDE 106 mmol/L (98-107); CHOL/HDL RATIO 2.5 (3.9-5.7); CHOLESTEROL 134 mg/dL (131-200); CREATININE 0.88 mg/dL (0.60-1.30); GLUCOSE,RANDOM 95 mg/dL (70-110); HDL CHOLESTEROL 54 mg/dL (40-60); HEMOGLOBIN A1C 5.4 % (4.5-6.2); LDL CHOL (CALC.) 61 mg/dL (0-130); POTASSIUM 3.6 mmol/L (3.5-5.1); SODIUM SERUM 141 mmol/L (136-145); TOTAL PROTEIN, SERUM 7.6 g/dL (6.4-8.2); TRIGLYCERIDES 96 mg/dL (15-150); UREA NITROGEN, BLOOD 16 mg/dL (7-18)
[2019-03-19 12:38] LABS: GLOMERULAR FILTR. RATE CALC > 60 mL/min (>60)
[2019-03-19 12:47] LABS: APPEARANCE,URINE CLEAR (CLEAR); BILIRUBIN,URINE NEGATIVE (NEGATIVE); GLUCOSE, URINE (UA) NEGATIVE (NEGATIVE); KETONES,URINE NEGATIVE (NEGATIVE); LEUKOCYTE ESTERASE ,URINE NEGATIVE (NEGATIVE); NITRATE,URINE NEGATIVE (NEGATIVE); OCCULT BLOOD,URINE TRACE (NEGATIVE); PH,URINE 5.5 (5.0-8.0); PROTEIN,URINE NEGATIVE (NEGATIVE); UROBILINOGEN,URINE 0.2 mg/dL (<=1.0)
[2019-03-19 13:33] LABS: BACTERIA,URINE None Seen /HPF (None Seen); RBC,URINE 0-2 /HPF (0-2); RENAL EPITHELIAL CELLS,URINE Moderate /LPF (None Seen); SQUAMOUS EPITHELIAL CELL,UR Few /LPF (None Seen)
== END | disposition home or self-care (01) ==
LOC: LABPV 08:51
PROVIDERS: ATTEND Internal Medicine Nephrology
DX: I12.9 Hypertensive chronic kidney disease with stage 1 through stage 4 chronic kidney disease, or unspecified chronic kidney disease (principal); N18.3 Chronic kidney disease, stage 3 (moderate); I47.1 Supraventricular tachycardia; E78.5 Hyperlipidemia, unspecified; Z79.899 Other long term (current) drug therapy
CPT/HCPCS: 82306; 83036

== ENCOUNTER → 2019-03-24 | Outpatient (CLI) | payer MEDICARE, OTHER ==
[~2019-03-24] VITALS: Ht 154.9 cm; Wt 65.5 kg
[~2019-03-24] MED LIST changes: -DRON400T PO; -LOSA-88 PO; +LOSA50TA64 PO; -METO25 PO
[2019-03-24 11:17] VITALS: BP 124/57
== END | disposition home or self-care (01) ==
LOC: SRCNTR 11:16
PROVIDERS: ATTEND Internal Medicine Critical Care Medicine
DX: J44.1 Chronic obstructive pulmonary disease with (acute) exacerbation (principal); I10 Essential (primary) hypertension; J30.9 Allergic rhinitis, unspecified; N36.9 Urethral disorder, unspecified; M81.0 Age-related osteoporosis without current pathological fracture
CPT/HCPCS: G0463

== ENCOUNTER → 2019-03-24 | Outpatient (CLI) | payer MEDICARE, OTHER | END | disposition home or self-care (01) | LOC: LABMN 14:45 | PROVIDERS: ATTEND Nurse Practitioner | DX: I13.0 Hypertensive heart and chronic kidney disease with heart failure and stage 1 through stage 4 chronic kidney disease, or unspecified chronic kidney disease (principal); N18.3 Chronic kidney disease, stage 3 (moderate); I50.9 Heart failure, unspecified | CPT/HCPCS: 83970 ==

== ENCOUNTER → 2019-04-13 | Outpatient (CLI) | payer MEDICARE, OTHER | END | disposition home or self-care (01) | LOC: RADPV 14:17 | PROVIDERS: ATTEND Internal Medicine Critical Care Medicine | DX: I70.0 Atherosclerosis of aorta (principal); R05 Cough ==

== ENCOUNTER → 2019-05-24 | Outpatient (CLI) | payer MEDICARE, OTHER ==
[~2019-05-24] MED LIST changes: +DRON400T PO; +LOSA-88 PO; -LOSA50TA64 PO; +METO25 PO
== END | disposition home or self-care (01) ==
LOC: RADPV 14:41
PROVIDERS: ATTEND Internal Medicine Critical Care Medicine
DX: M19.071 Primary osteoarthritis, right ankle and foot (principal); M77.31 Calcaneal spur, right foot

== ENCOUNTER → 2019-05-24 | Outpatient (CLI) | payer MEDICARE, OTHER ==
[~2019-05-24] VITALS: Ht 152.4 cm; Wt 74.0 kg
[2019-05-24 11:27] VITALS: BP 145/73
== END | disposition home or self-care (01) ==
LOC: SRCNTR 11:25
PROVIDERS: ATTEND Internal Medicine Critical Care Medicine
DX: M79.10 Myalgia, unspecified site (principal); M79.671 Pain in right foot; I10 Essential (primary) hypertension; M81.0 Age-related osteoporosis without current pathological fracture; H40.9 Unspecified glaucoma; J45.909 Unspecified asthma, uncomplicated
CPT/HCPCS: G0463

== ENCOUNTER → 2019-06-02 | Outpatient (CLI) | payer MEDICARE, OTHER ==
[~2019-06-02] MED LIST changes: -AMLO5TAB9 PO; -APIX5TAB PO; -CARV6 PO; -PANT40TA25 PO
[2019-06-02 14:10] LABS: BASOPHILS % (AUTO) 0.9 % (0.0-2.0); HEMATOCRIT 34.7 % (36-46); HEMOGLOBIN 11.3 g/dL (12.0-16.0); LYMPHOCYTES # (AUTO) 1.9 K/uL (1.0-4.8); LYMPHOCYTES % (AUTO) 31.4 % (22.0-44.0); MEAN CORPUSCULAR HEMOGLOBIN 27.1 pg (26.0-34.0); MEAN CORPUSCULAR HGB CONC 32.6 G/dL (31.0-37.0); MEAN CORPUSCULAR VOLUME 83 fL (80-100); MONOCYTES # (AUTO) 0.6 K/uL (0.1-1.0); MONOCYTES % (AUTO) 9.3 % (2.0-9.0); NEUTROPHILS # (AUTO) 3.1 K/uL (1.8-7.7); NEUTROPHILS % (AUTO) 51.4 % (40.0-70.0); PLATELET COUNT (AUTO) 188 K/uL (150-450); RED BLOOD CELL COUNT(AUTO) 4.17 MIL/uL (4.00-5.20); RED CELL DISTRIBUTION WIDTH 15.6 % (11.5-14.5)
[2019-06-02 14:26] LABS: ALBUMIN 3.4 g/dL (3.4-5.0); CALCIUM, TOTAL 8.9 mg/dL (8.8-10.5); CREATININE 0.97 mg/dL (0.60-1.30); PHOSPHORUS 3.9 mg/dL (2.5-4.9); POTASSIUM 4.2 mmol/L (3.5-5.1)
== END | disposition home or self-care (01) ==
LOC: LABPV 13:33
PROVIDERS: ATTEND Internal Medicine Nephrology
DX: N18.3 Chronic kidney disease, stage 3 (moderate) (principal); I47.1 Supraventricular tachycardia
CPT/HCPCS: 82043; 82570

== ENCOUNTER → 2019-06-17 | Outpatient (CLI) | payer MEDICARE, OTHER ==
[2019-06-17 12:18] LABS: BASOPHILS % (AUTO) 0.8 % (0.0-2.0); EOSINOPHILS % (AUTO) 4.4 % (1.0-6.0); HEMATOCRIT 34.5 % (36-46); HEMOGLOBIN 11.2 g/dL (12.0-16.0); LYMPHOCYTES % (AUTO) 35.9 % (22.0-44.0); MEAN CORPUSCULAR HGB CONC 32.4 G/dL (31.0-37.0); MEAN CORPUSCULAR VOLUME 84 fL (80-100); MONOCYTES # (AUTO) 0.4 K/uL (0.1-1.0); MONOCYTES % (AUTO) 7.4 % (2.0-9.0); NEUTROPHILS # (AUTO) 2.9 K/uL (1.8-7.7); NEUTROPHILS % (AUTO) 51.5 % (40.0-70.0); PLATELET COUNT (AUTO) 165 K/uL (150-450); RED BLOOD CELL COUNT(AUTO) 4.13 MIL/uL (4.00-5.20); RED CELL DISTRIBUTION WIDTH 15.5 % (11.5-14.5)
[2019-06-17 12:49] LABS: ALBUMIN 3.3 g/dL (3.4-5.0); BILIRUBIN,TOTAL 0.5 mg/dL (0.1-1.0); CALCIUM, TOTAL 8.7 mg/dL (8.8-10.5); CHOL/HDL RATIO 2.6 (3.9-5.7); POTASSIUM 4.1 mmol/L (3.5-5.1); TOTAL PROTEIN, SERUM 6.7 g/dL (6.4-8.2)
[2019-06-17 13:15] LABS: CREATININE 1.09 mg/dL (0.60-1.30)
== END | disposition home or self-care (01) ==
LOC: LABPV 10:56
PROVIDERS: ATTEND Nurse Practitioner
DX: I10 Essential (primary) hypertension (principal); E78.5 Hyperlipidemia, unspecified; E78.49 Other hyperlipidemia

== ENCOUNTER → 2019-11-11 | Outpatient (CLI) | payer MEDICARE, OTHER ==
[~2019-11-11] MED LIST changes: -LOSA-88 PO; +LOSA50TA37 PO
== END | disposition home or self-care (01) ==
LOC: RADPV 11:47
PROVIDERS: ATTEND Nurse Practitioner
DX: M43.16 Spondylolisthesis, lumbar region (principal); M54.5 Low back pain; M48.04 Spinal stenosis, thoracic region; M41.86 Other forms of scoliosis, lumbar region; M48.061 Spinal stenosis, lumbar region without neurogenic claudication; M89.38 Hypertrophy of bone, other site; M48.26 Kissing spine, lumbar region
CPT/HCPCS: 72072; 72100

== ENCOUNTER → 2019-11-12 | Outpatient (CLI) | payer MEDICARE, OTHER ==
[2019-11-12 10:38] LABS: BASOPHILS % (AUTO) 0.9 % (0.0-2.0); EOSINOPHILS % (AUTO) 3.8 % (1.0-6.0); HEMATOCRIT 35.1 % (36-46); HEMOGLOBIN 11.5 g/dL (12.0-16.0); LYMPHOCYTES # (AUTO) 1.6 K/uL (1.0-4.8); LYMPHOCYTES % (AUTO) 31.7 % (22.0-44.0); MEAN CORPUSCULAR HEMOGLOBIN 28.1 pg (26.0-34.0); MEAN CORPUSCULAR HGB CONC 32.6 G/dL (31.0-37.0); MEAN CORPUSCULAR VOLUME 86 fL (80-100); MONOCYTES # (AUTO) 0.5 K/uL (0.1-1.0); NEUTROPHILS # (AUTO) 2.7 K/uL (1.8-7.7); NEUTROPHILS % (AUTO) 54.6 % (40.0-70.0); PLATELET COUNT (AUTO) 168 K/uL (150-450); RED BLOOD CELL COUNT(AUTO) 4.08 MIL/uL (4.00-5.20); RED CELL DISTRIBUTION WIDTH 15.8 % (11.5-14.5)
[2019-11-12 10:57] LABS: ALBUMIN 3.4 g/dL (3.4-5.0); BILIRUBIN,TOTAL 0.6 mg/dL (0.1-1.0); CALCIUM, TOTAL 8.5 mg/dL (8.8-10.5); CHOL/HDL RATIO 2.2 (3.9-5.7); CREATININE 1.18 mg/dL (0.60-1.30); POTASSIUM 3.5 mmol/L (3.5-5.1)
== END | disposition home or self-care (01) ==
LOC: LABPV 09:29
PROVIDERS: ATTEND Nurse Practitioner
DX: I12.9 Hypertensive chronic kidney disease with stage 1 through stage 4 chronic kidney disease, or unspecified chronic kidney disease (principal); N18.3 Chronic kidney disease, stage 3 (moderate); E78.5 Hyperlipidemia, unspecified

== ENCOUNTER → 2019-12-09 | Outpatient (CLI) | payer MEDICARE, OTHER ==
[2019-12-09 13:13] LABS: APPEARANCE,URINE CLEAR (CLEAR); BILIRUBIN,URINE NEGATIVE (NEGATIVE); GLUCOSE, URINE (UA) NEGATIVE (NEGATIVE); KETONES,URINE NEGATIVE (NEGATIVE); LEUKOCYTE ESTERASE ,URINE NEGATIVE (NEGATIVE); NITRATE,URINE NEGATIVE (NEGATIVE); OCCULT BLOOD,URINE TRACE (NEGATIVE); PROTEIN,URINE NEGATIVE (NEGATIVE)
[2019-12-09 13:20] LABS: BACTERIA,URINE None Seen /HPF (None Seen); RBC,URINE 0-2 /HPF (0-2); SQUAMOUS EPITHELIAL CELL,UR Few /LPF (None Seen); WBC,URINE None Seen /HPF (0-5)
== END | disposition home or self-care (01) ==
LOC: LABPV 11:24
PROVIDERS: ATTEND Internal Medicine Nephrology
DX: I12.9 Hypertensive chronic kidney disease with stage 1 through stage 4 chronic kidney disease, or unspecified chronic kidney disease (principal); N18.3 Chronic kidney disease, stage 3 (moderate); I47.1 Supraventricular tachycardia; Z79.899 Other long term (current) drug therapy
CPT/HCPCS: 83036

== ENCOUNTER → 2019-12-31 | Outpatient (CLI) | payer MEDICARE, OTHER ==
[2019-12-31 11:23] LABS: BASOPHILS % (AUTO) 1.2 % (0.0-2.0); HEMATOCRIT 35.3 % (36-46); HEMOGLOBIN 11.8 g/dL (12.0-16.0); LYMPHOCYTES # (AUTO) 1.8 K/uL (1.0-4.8); LYMPHOCYTES % (AUTO) 32.3 % (22.0-44.0); MEAN CORPUSCULAR HEMOGLOBIN 29.1 pg (26.0-34.0); MEAN CORPUSCULAR HGB CONC 33.3 G/dL (31.0-37.0); MEAN CORPUSCULAR VOLUME 87 fL (80-100); MONOCYTES # (AUTO) 0.6 K/uL (0.1-1.0); MONOCYTES % (AUTO) 10.1 % (2.0-9.0); NEUTROPHILS # (AUTO) 2.8 K/uL (1.8-7.7); NEUTROPHILS % (AUTO) 49.4 % (40.0-70.0); PLATELET COUNT (AUTO) 170 K/uL (150-450); RED BLOOD CELL COUNT(AUTO) 4.04 MIL/uL (4.00-5.20); RED CELL DISTRIBUTION WIDTH 14.7 % (11.5-14.5)
[2019-12-31 12:13] LABS: APPEARANCE,URINE CLEAR (CLEAR); BILIRUBIN,URINE NEGATIVE (NEGATIVE); GLUCOSE, URINE (UA) NEGATIVE (NEGATIVE); KETONES,URINE NEGATIVE (NEGATIVE); LEUKOCYTE ESTERASE ,URINE NEGATIVE (NEGATIVE); NITRATE,URINE NEGATIVE (NEGATIVE); OCCULT BLOOD,URINE NEGATIVE (NEGATIVE); PROTEIN,URINE NEGATIVE (NEGATIVE)
[2019-12-31 12:34] LABS: ALBUMIN 3.7 g/dL (3.4-5.0); CALCIUM, TOTAL 8.9 mg/dL (8.8-10.5); CHOL/HDL RATIO 2.8 (3.9-5.7); CREATININE 1.1 mg/dL (0.60-1.30); MAGNESIUM 1.8 mg/dL (1.80-2.40); PHOSPHORUS 3.2 mg/dL (2.5-4.9); POTASSIUM 3.8 mmol/L (3.5-5.1)
== END | disposition home or self-care (01) ==
LOC: LABPV 09:11
PROVIDERS: ATTEND Internal Medicine Nephrology
DX: I12.9 Hypertensive chronic kidney disease with stage 1 through stage 4 chronic kidney disease, or unspecified chronic kidney disease (principal); N18.3 Chronic kidney disease, stage 3 (moderate); I48.0 Paroxysmal atrial fibrillation; K21.9 Gastro-esophageal reflux disease without esophagitis
CPT/HCPCS: 82043; 82570; 83735

== ENCOUNTER → 2020-02-15 | Outpatient (CLI) | payer MEDICARE, OTHER ==
[~2020-02-15] VITALS: Ht 152.4 cm; Wt 77.0 kg
[2020-02-15 12:00] VITALS: BP 145/70
== END | disposition home or self-care (01) ==
LOC: SRCNTR 11:30
PROVIDERS: ATTEND Internal Medicine Critical Care Medicine
DX: J44.1 Chronic obstructive pulmonary disease with (acute) exacerbation (principal); J30.9 Allergic rhinitis, unspecified; I10 Essential (primary) hypertension; N36.9 Urethral disorder, unspecified; M81.0 Age-related osteoporosis without current pathological fracture; I48.92 Unspecified atrial flutter; Z86.79 Personal history of other diseases of the circulatory system; Z79.899 Other long term (current) drug therapy; Z98.890 Other specified postprocedural states; Z90.710 Acquired absence of both cervix and uterus
CPT/HCPCS: G0463

== ENCOUNTER → 2020-04-12 | Outpatient (CLI) | payer MEDICARE, OTHER ==
[2020-04-12 09:38] LABS: BASOPHILS % (AUTO) 0.8 % (0.0-2.0); EOSINOPHILS % (AUTO) 7.3 % (1.0-6.0); HEMATOCRIT 36.1 % (36-46); HEMOGLOBIN 11.9 g/dL (12.0-16.0); LYMPHOCYTES # (AUTO) 1.7 K/uL (1.0-4.8); LYMPHOCYTES % (AUTO) 39.6 % (22.0-44.0); MEAN CORPUSCULAR HEMOGLOBIN 28.5 pg (26.0-34.0); MEAN CORPUSCULAR HGB CONC 32.9 G/dL (31.0-37.0); MEAN CORPUSCULAR VOLUME 87 fL (80-100); MONOCYTES # (AUTO) 0.4 K/uL (0.1-1.0); MONOCYTES % (AUTO) 8.5 % (2.0-9.0); NEUTROPHILS # (AUTO) 1.9 K/uL (1.8-7.7); NEUTROPHILS % (AUTO) 43.8 % (40.0-70.0); PLATELET COUNT (AUTO) 172 K/uL (150-450); RED BLOOD CELL COUNT(AUTO) 4.18 MIL/uL (4.00-5.20)
[2020-04-12 09:42] LABS: APPEARANCE,URINE CLEAR (CLEAR); BILIRUBIN,URINE NEGATIVE (NEGATIVE); GLUCOSE, URINE (UA) NEGATIVE (NEGATIVE); KETONES,URINE NEGATIVE (NEGATIVE); LEUKOCYTE ESTERASE ,URINE NEGATIVE (NEGATIVE); NITRATE,URINE NEGATIVE (NEGATIVE); OCCULT BLOOD,URINE TRACE (NEGATIVE); PROTEIN,URINE NEGATIVE (NEGATIVE); UROBILINOGEN,URINE 0.2 mg/dL (<=1.0)
[2020-04-12 09:49] LABS: BACTERIA,URINE None Seen /HPF (None Seen); RBC,URINE 0-2 /HPF (0-2); WBC,URINE None Seen /HPF (0-5)
[2020-04-12 10:19] LABS: ALBUMIN 3.6 g/dL (3.4-5.0); CALCIUM, TOTAL 9.1 mg/dL (8.8-10.5); CHOL/HDL RATIO 2.3 (3.9-5.7); CREATININE 1.12 mg/dL (0.60-1.30); PHOSPHORUS 5.3 mg/dL (2.5-4.9); POTASSIUM 3.9 mmol/L (3.5-5.1)
== END | disposition home or self-care (01) ==
LOC: LABPV 09:16
PROVIDERS: ATTEND Internal Medicine Nephrology
DX: I12.9 Hypertensive chronic kidney disease with stage 1 through stage 4 chronic kidney disease, or unspecified chronic kidney disease (principal); N18.30 Chronic kidney disease, stage 3 unspecified; I48.0 Paroxysmal atrial fibrillation; K21.9 Gastro-esophageal reflux disease without esophagitis
CPT/HCPCS: 82043; 82570; 83735

== ENCOUNTER → 2020-04-20 | Outpatient (CLI) | payer MEDICARE, OTHER | END | disposition home or self-care (01) | LOC: RADPV 11:01 | PROVIDERS: ATTEND Internal Medicine Critical Care Medicine | DX: I70.0 Atherosclerosis of aorta (principal); J44.9 Chronic obstructive pulmonary disease, unspecified | CPT/HCPCS: 71046; 71046-TC ==

== ENCOUNTER → 2020-05-01 | Outpatient (CLI) | payer MEDICARE, OTHER ==
[~2020-05-01] VITALS: Ht 152.4 cm; Wt 78.0 kg
[~2020-05-01] MED LIST changes: +PANT-31 PO
[2020-05-01 10:20] VITALS: BP 151/67
== END | disposition home or self-care (01) ==
LOC: SRCNTR 10:06
PROVIDERS: ATTEND Internal Medicine Critical Care Medicine
DX: J44.1 Chronic obstructive pulmonary disease with (acute) exacerbation (principal); J30.9 Allergic rhinitis, unspecified; I10 Essential (primary) hypertension; N36.9 Urethral disorder, unspecified; M81.0 Age-related osteoporosis without current pathological fracture; I48.92 Unspecified atrial flutter
CPT/HCPCS: G0463

== ENCOUNTER → 2020-05-12 | Outpatient (CLI) | payer MEDICARE, OTHER ==
[~2020-05-12] MED LIST changes: -METH1TAB2 PO; -OMEP20 PO
== END | disposition home or self-care (01) ==
LOC: RADPV 10:40
PROVIDERS: ATTEND Nurse Practitioner
DX: I70.0 Atherosclerosis of aorta (principal); M79.671 Pain in right foot; R07.81 Pleurodynia; M19.071 Primary osteoarthritis, right ankle and foot; M77.31 Calcaneal spur, right foot; M25.774 Osteophyte, right foot
CPT/HCPCS: 71101; 73630-TC

== ENCOUNTER → 2020-06-14 | Outpatient (CLI) | payer MEDICARE, OTHER ==
[~2020-06-14] VITALS: Ht 152.4 cm; Wt 80.1 kg
[2020-06-14 12:34] VITALS: BP 138/62
[2020-06-14 12:40] VITALS: BP 147/69
== END | disposition home or self-care (01) ==
LOC: SRCNTR 11:38
PROVIDERS: ATTEND Internal Medicine Critical Care Medicine
DX: J44.1 Chronic obstructive pulmonary disease with (acute) exacerbation (principal); R09.82 Postnasal drip; I10 Essential (primary) hypertension; N36.9 Urethral disorder, unspecified; M81.0 Age-related osteoporosis without current pathological fracture; I48.91 Unspecified atrial fibrillation; J45.909 Unspecified asthma, uncomplicated; H40.9 Unspecified glaucoma; Z88.8 Allergy status to other drugs, medicaments and biological substances; Z79.899 Other long term (current) drug therapy; Z90.710 Acquired absence of both cervix and uterus; Z98.890 Other specified postprocedural states
CPT/HCPCS: G0463; Z7500

== ENCOUNTER → 2020-06-30 | Outpatient (CLI) | payer MEDICARE, OTHER ==
[2020-06-30 09:26] LABS: BASOPHILS % (AUTO) 0.9 % (0.0-2.0); EOSINOPHILS % (AUTO) 7.2 % (1.0-6.0); HEMATOCRIT 36.3 % (36-46); HEMOGLOBIN 11.8 g/dL (12.0-16.0); LYMPHOCYTES # (AUTO) 1.7 K/uL (1.0-4.8); LYMPHOCYTES % (AUTO) 37.8 % (22.0-44.0); MEAN CORPUSCULAR HEMOGLOBIN 28.4 pg (26.0-34.0); MEAN CORPUSCULAR HGB CONC 32.5 G/dL (31.0-37.0); MEAN CORPUSCULAR VOLUME 87 fL (80-100); MONOCYTES # (AUTO) 0.4 K/uL (0.1-1.0); MONOCYTES % (AUTO) 8.2 % (2.0-9.0); NEUTROPHILS % (AUTO) 45.9 % (40.0-70.0); PLATELET COUNT (AUTO) 169 K/uL (150-450); RED BLOOD CELL COUNT(AUTO) 4.16 MIL/uL (4.00-5.20)
[2020-06-30 09:41] LABS: ALBUMIN 3.6 g/dL (3.4-5.0); BILIRUBIN,TOTAL 0.7 mg/dL (0.1-1.0); CALCIUM, TOTAL 8.8 mg/dL (8.8-10.5); CHOL/HDL RATIO 2.4 (3.9-5.7); CREATININE 0.99 mg/dL (0.60-1.30); POTASSIUM 4.1 mmol/L (3.5-5.1); TOTAL PROTEIN, SERUM 7.2 g/dL (6.4-8.2)
== END | disposition home or self-care (01) ==
LOC: LABPV 08:43
PROVIDERS: ATTEND Nurse Practitioner
DX: N18.30 Chronic kidney disease, stage 3 unspecified (principal); E78.49 Other hyperlipidemia

== ENCOUNTER → 2020-07-06 | Outpatient (CLI) | payer MEDICARE, OTHER ==
[~2020-07-06] MED LIST changes: -ROSU10TA22 PO; +ROSU10TA72 PO
[2020-07-06 12:04] LABS: APPEARANCE,URINE TURBID (CLEAR); BILIRUBIN,URINE NEGATIVE (NEGATIVE); GLUCOSE, URINE (UA) NEGATIVE (NEGATIVE); KETONES,URINE NEGATIVE (NEGATIVE); LEUKOCYTE ESTERASE ,URINE LARGE (NEGATIVE); NITRATE,URINE POSITIVE (NEGATIVE); OCCULT BLOOD,URINE MODERATE (NEGATIVE); PROTEIN,URINE POS 1+ (NEGATIVE)
[2020-07-06 12:31] LABS: BACTERIA,URINE Moderate /HPF (None Seen); WBC,URINE >100 /HPF (0-5)
== END | disposition home or self-care (01) ==
LOC: LABPV 11:34
PROVIDERS: ATTEND Urology
DX: N39.0 Urinary tract infection, site not specified (principal)
CPT/HCPCS: 87086; 81001-TC; 87077-TC; 87186-TC

== ENCOUNTER → 2020-08-10 | Outpatient (CLI) | payer MEDICARE, OTHER ==
[~2020-08-10] MED LIST changes: -DRON400T PO; +DRON400T7 PO
[2020-08-10 12:14] LABS: APPEARANCE,URINE TURBID (CLEAR); BILIRUBIN,URINE NEGATIVE (NEGATIVE); GLUCOSE, URINE (UA) NEGATIVE (NEGATIVE); KETONES,URINE NEGATIVE (NEGATIVE); LEUKOCYTE ESTERASE ,URINE LARGE (NEGATIVE); NITRATE,URINE NEGATIVE (NEGATIVE); OCCULT BLOOD,URINE MODERATE (NEGATIVE); PROTEIN,URINE POS 1+ (NEGATIVE)
[2020-08-10 12:24] LABS: BACTERIA,URINE Many /HPF (None Seen); WBC,URINE 51-100 /HPF (0-5)
== END | disposition home or self-care (01) ==
LOC: LABPV 09:23
PROVIDERS: ATTEND Urology
DX: N39.0 Urinary tract infection, site not specified (principal)
CPT/HCPCS: 81001; 87077; 87086; 87186

== ENCOUNTER → 2020-09-14 | Outpatient (CLI) | payer MEDICARE, OTHER ==
[~2020-09-14] VITALS: Ht 152.4 cm; Wt 78.3 kg
[2020-09-14 11:50] VITALS: BP 141/62
== END | disposition home or self-care (01) ==
LOC: SRCNTR 11:10
PROVIDERS: ATTEND Internal Medicine Critical Care Medicine
DX: J44.1 Chronic obstructive pulmonary disease with (acute) exacerbation (principal); J30.9 Allergic rhinitis, unspecified; I10 Essential (primary) hypertension; N36.9 Urethral disorder, unspecified; M81.0 Age-related osteoporosis without current pathological fracture; I48.92 Unspecified atrial flutter; H40.9 Unspecified glaucoma; Z79.899 Other long term (current) drug therapy; Z88.8 Allergy status to other drugs, medicaments and biological substances; Z90.710 Acquired absence of both cervix and uterus; Z98.890 Other specified postprocedural states
CPT/HCPCS: G0463

== ENCOUNTER → 2020-10-16 | Outpatient (CLI) | payer MEDICARE, OTHER ==
[2020-10-16 11:06] LABS: BASOPHILS % (AUTO) 0.9 % (0.0-2.0); EOSINOPHILS % (AUTO) 6.7 % (1.0-6.0); HEMATOCRIT 35.3 % (36-46); HEMOGLOBIN 11.6 g/dL (12.0-16.0); LYMPHOCYTES # (AUTO) 1.6 K/uL (1.0-4.8); LYMPHOCYTES % (AUTO) 34.1 % (22.0-44.0); MEAN CORPUSCULAR HEMOGLOBIN 28.6 pg (26.0-34.0); MEAN CORPUSCULAR HGB CONC 32.9 G/dL (31.0-37.0); MEAN CORPUSCULAR VOLUME 87 fL (80-100); MONOCYTES # (AUTO) 0.4 K/uL (0.1-1.0); NEUTROPHILS # (AUTO) 2.3 K/uL (1.8-7.7); NEUTROPHILS % (AUTO) 49.3 % (40.0-70.0); PLATELET COUNT (AUTO) 153 K/uL (150-450); RED BLOOD CELL COUNT(AUTO) 4.06 MIL/uL (4.00-5.20); RED CELL DISTRIBUTION WIDTH 15.3 % (11.5-14.5)
[2020-10-16 11:19] LABS: % IRON SATURATION 19.1 % (22-44)
[2020-10-16 11:20] LABS: APPEARANCE,URINE CLEAR (CLEAR); BILIRUBIN,URINE NEGATIVE (NEGATIVE); CREATININE,URINE RANDOM 96.3 mg/dL (30.0-125.0); GLUCOSE, URINE (UA) NEGATIVE (NEGATIVE); KETONES,URINE NEGATIVE (NEGATIVE); LEUKOCYTE ESTERASE ,URINE NEGATIVE (NEGATIVE); NITRATE,URINE NEGATIVE (NEGATIVE); OCCULT BLOOD,URINE TRACE (NEGATIVE); PH,URINE 5.5 (5.0-8.0); PROTEIN,URINE NEGATIVE (NEGATIVE); PROTEIN,URINE RANDOM 17 mg/dL (0-11.9)
[2020-10-16 11:25] LABS: ALBUMIN 3.6 g/dL (3.4-5.0); CALCIUM, TOTAL 8.9 mg/dL (8.8-10.5); CHOL/HDL RATIO 2.1 (3.9-5.7); CREATININE 0.99 mg/dL (0.60-1.30); HEMOGLOBIN A1C 5.3 % (3.8-5.6); PHOSPHORUS 3.5 mg/dL (2.5-4.9); POTASSIUM 3.7 mmol/L (3.5-5.1)
[2020-10-16 12:47] LABS: BACTERIA,URINE None Seen /HPF (None Seen); RBC,URINE 0-2 /HPF (0-2); SQUAMOUS EPITHELIAL CELL,UR Few /LPF (None Seen); WBC,URINE None Seen /HPF (0-5)
[2020-10-17 10:38] LABS: FOLATE SERUM 14.9 ng/mL (5.4-)
== END | disposition home or self-care (01) ==
LOC: LABPV 08:52
PROVIDERS: ATTEND Internal Medicine Nephrology
DX: I12.9 Hypertensive chronic kidney disease with stage 1 through stage 4 chronic kidney disease, or unspecified chronic kidney disease (principal); N18.31 Chronic kidney disease, stage 3a; K21.9 Gastro-esophageal reflux disease without esophagitis; I47.1 Supraventricular tachycardia; Z79.899 Other long term (current) drug therapy
CPT/HCPCS: 80061; 80069; 81001; 82043; 82570; 82607; 82728; 82746; 83036; 83540; 83550; 83735; 84156; 85025

== ENCOUNTER → 2020-12-28 | Outpatient (CLI) | payer MEDICARE, OTHER ==
[~2020-12-28] VITALS: Ht 152.4 cm; Wt 80.0 kg
[~2020-12-28] MED LIST changes: +INFLUENZA VIRUS VACCINE QVS 2021-22 (6MO+)/PF 60 MCG/0.5 ML SYRINGE IM. ONE
[2020-12-28 15:32] VITALS: BP 140/65
== END | disposition home or self-care (01) ==
LOC: SRCNTR 11:22
PROVIDERS: ATTEND Internal Medicine Critical Care Medicine
DX: Z23 Encounter for immunization (principal); J44.1 Chronic obstructive pulmonary disease with (acute) exacerbation; J30.9 Allergic rhinitis, unspecified; I10 Essential (primary) hypertension; N36.9 Urethral disorder, unspecified; M81.0 Age-related osteoporosis without current pathological fracture; I48.92 Unspecified atrial flutter
CPT/HCPCS: 90471; 90686; G0463

== ENCOUNTER → 2021-02-14 | Outpatient (CLI) | payer MEDICARE, OTHER ==
[~2021-02-14] MED LIST changes: -INFLUENZA VIRUS VACCINE QVS 2021-22 (6MO+)/PF 60 MCG/0.5 ML SYRINGE IM. ONE
[2021-02-14 10:32] LABS: BASOPHILS % (AUTO) 1.1 % (0.0-2.0); EOSINOPHILS % (AUTO) 6.8 % (1.0-6.0); HEMATOCRIT 34.5 % (36-46); HEMOGLOBIN 11.3 g/dL (12.0-16.0); LYMPHOCYTES # (AUTO) 1.2 K/uL (1.0-4.8); LYMPHOCYTES % (AUTO) 32.4 % (22.0-44.0); MEAN CORPUSCULAR HEMOGLOBIN 29.2 pg (26.0-34.0); MEAN CORPUSCULAR HGB CONC 32.7 G/dL (31.0-37.0); MEAN CORPUSCULAR VOLUME 89 fL (80-100); MONOCYTES # (AUTO) 0.4 K/uL (0.1-1.0); MONOCYTES % (AUTO) 10.9 % (2.0-9.0); NEUTROPHILS # (AUTO) 1.9 K/uL (1.8-7.7); NEUTROPHILS % (AUTO) 48.8 % (40.0-70.0); PLATELET COUNT (AUTO) 155 K/uL (150-450); RED BLOOD CELL COUNT(AUTO) 3.86 MIL/uL (4.00-5.20); RED CELL DISTRIBUTION WIDTH 15.4 % (11.5-14.5)
[2021-02-14 10:38] LABS: CREATININE,URINE RANDOM 49.5 mg/dL (30.0-125.0)
[2021-02-14 10:44] LABS: % IRON SATURATION 19.1 % (22-44)
[2021-02-14 10:50] LABS: ALBUMIN 3.7 g/dL (3.4-5.0); BILIRUBIN,TOTAL 0.7 mg/dL (0.1-1.0); CALCIUM, TOTAL 8.7 mg/dL (8.8-10.5); CHOL/HDL RATIO 2.2 (3.9-5.7); CREATININE 1.1 mg/dL (0.60-1.30); PHOSPHORUS 3.8 mg/dL (2.5-4.9); POTASSIUM 4.2 mmol/L (3.5-5.1); TOTAL PROTEIN, SERUM 7.3 g/dL (6.4-8.2)
[2021-02-14 10:59] LABS: FOLATE SERUM 20.7 ng/mL (5.4-)
== END | disposition home or self-care (01) ==
LOC: LABPV 08:13
PROVIDERS: ATTEND Nurse Practitioner
DX: I10 Essential (primary) hypertension (principal); E78.5 Hyperlipidemia, unspecified; Z79.899 Other long term (current) drug therapy; Z86.2 Personal history of diseases of the blood and blood-forming organs and certain disorders involving the immune mechanism
CPT/HCPCS: 80053; 80061; 82043; 82570; 82607; 82728; 82746; 83036; 83540; 83550; 83735; 84100; 84156; 85025

== ENCOUNTER → 2021-05-04 | Outpatient (CLI) | payer MEDICARE, OTHER ==
[~2021-05-04] VITALS: Ht 152.4 cm; Wt 77.3 kg
[~2021-05-04] MED LIST changes: +LOSA-382 PO; -LOSA50TA37 PO
[2021-05-04 11:51] VITALS: BP 158/66
== END | disposition home or self-care (01) ==
LOC: SRCNTR 11:16
PROVIDERS: ATTEND Internal Medicine Critical Care Medicine
DX: J44.1 Chronic obstructive pulmonary disease with (acute) exacerbation (principal); J30.9 Allergic rhinitis, unspecified; I10 Essential (primary) hypertension; N36.9 Urethral disorder, unspecified; M81.0 Age-related osteoporosis without current pathological fracture; I48.92 Unspecified atrial flutter; Z86.16 Personal history of COVID-19
CPT/HCPCS: G0463; Z7500

== ENCOUNTER → 2021-08-16 | Outpatient (CLI) | payer MEDICARE, OTHER ==
[~2021-08-16] MED LIST changes: +APIX5TAB PO; +DRON400T6 PO; -DRON400T7 PO; +NETA2.5D3 OD; +TIMO.5OS OD
[2021-08-16 11:00] LABS: BASOPHILS % (AUTO) 0.6 % (0.0-2.0); EOSINOPHILS % (AUTO) 4.9 % (1.0-6.0); HEMATOCRIT 36.2 % (36-46); HEMOGLOBIN 12.1 g/dL (12.0-16.0); LYMPHOCYTES # (AUTO) 1.4 K/uL (1.0-4.8); LYMPHOCYTES % (AUTO) 33.3 % (22.0-44.0); MEAN CORPUSCULAR HEMOGLOBIN 28.6 pg (26.0-34.0); MEAN CORPUSCULAR HGB CONC 33.5 G/dL (31.0-37.0); MEAN CORPUSCULAR VOLUME 85 fL (80-100); MONOCYTES # (AUTO) 0.4 K/uL (0.1-1.0); MONOCYTES % (AUTO) 9.4 % (2.0-9.0); NEUTROPHILS # (AUTO) 2.1 K/uL (1.8-7.7); NEUTROPHILS % (AUTO) 51.8 % (40.0-70.0); PLATELET COUNT (AUTO) 185 K/uL (150-450); RED BLOOD CELL COUNT(AUTO) 4.25 MIL/uL (4.00-5.20); RED CELL DISTRIBUTION WIDTH 14.7 % (11.5-14.5)
[2021-08-16 11:44] LABS: APPEARANCE,URINE CLEAR (CLEAR); BILIRUBIN,URINE NEGATIVE (NEGATIVE); GLUCOSE, URINE (UA) NEGATIVE (NEGATIVE); KETONES,URINE NEGATIVE (NEGATIVE); LEUKOCYTE ESTERASE ,URINE TRACE (NEGATIVE); NITRATE,URINE NEGATIVE (NEGATIVE); OCCULT BLOOD,URINE NEGATIVE (NEGATIVE); PROTEIN,URINE NEGATIVE (NEGATIVE); SPECIFIC GRAVITIY, URINE 1.015 (1.003-1.030); UROBILINOGEN,URINE <=1.0 mg/dL (<=1.0)
[2021-08-16 11:51] LABS: % IRON SATURATION 22.5 % (22-44)
[2021-08-16 11:55] LABS: CREATININE,URINE RANDOM 64.3 mg/dL (30.0-125.0); PROTEIN,URINE RANDOM 18 mg/dL (0-11.9)
[2021-08-16 12:05] LABS: ALBUMIN 3.7 g/dL (3.4-5.0); CHOL/HDL RATIO 2.4 (3.9-5.7); MAGNESIUM 1.9 mg/dL (1.80-2.40); PHOSPHORUS 3.8 mg/dL (2.5-4.9)
[2021-08-16 12:18] LABS: BACTERIA,URINE None Seen /HPF (None Seen); RBC,URINE None Seen /HPF (0-2); WBC,URINE 0-2 /HPF (0-5)
[2021-08-16 18:18] LABS: CALCIUM, TOTAL 8.8 mg/dL (8.8-10.5); CREATININE 1.02 mg/dL (0.60-1.30); POTASSIUM 4.4 mmol/L (3.5-5.1)
== END | disposition home or self-care (01) ==
LOC: LABMN 09:35
PROVIDERS: ATTEND Internal Medicine Nephrology
DX: I12.9 Hypertensive chronic kidney disease with stage 1 through stage 4 chronic kidney disease, or unspecified chronic kidney disease (principal); N18.31 Chronic kidney disease, stage 3a; I48.0 Paroxysmal atrial fibrillation; E78.00 Pure hypercholesterolemia, unspecified; N39.0 Urinary tract infection, site not specified
CPT/HCPCS: 80061; 80069; 81001; 82043; 82570; 82728; 83540; 83550; 83735; 84156; 85025

== ENCOUNTER → 2021-08-16 | Outpatient (CLI) | payer MEDICARE, OTHER | END | disposition home or self-care (01) | LOC: RADMN 09:41 | PROVIDERS: ATTEND Internal Medicine Critical Care Medicine | DX: J44.1 Chronic obstructive pulmonary disease with (acute) exacerbation (principal) | CPT/HCPCS: 71046 ==

== ENCOUNTER → 2021-08-21 | Outpatient (CLI) | payer MEDICARE, OTHER ==
[~2021-08-21] VITALS: Ht 152.4 cm; Wt 77.8 kg
[2021-08-21 15:08] VITALS: BP 140/64
== END | disposition home or self-care (01) ==
LOC: SRCNTR 14:51
PROVIDERS: ATTEND Internal Medicine Cardiovascular Disease
DX: I44.0 Atrioventricular block, first degree (principal); R94.31 Abnormal electrocardiogram [ECG] [EKG]; I48.0 Paroxysmal atrial fibrillation; I10 Essential (primary) hypertension; J44.9 Chronic obstructive pulmonary disease, unspecified; E78.5 Hyperlipidemia, unspecified; Z79.01 Long term (current) use of anticoagulants; Z79.899 Other long term (current) drug therapy; Z98.890 Other specified postprocedural states; Z88.1 Allergy status to other antibiotic agents; Z88.8 Allergy status to other drugs, medicaments and biological substances; Z91.041 Radiographic dye allergy status
CPT/HCPCS: 93005; G0463

== ENCOUNTER → 2021-08-22 | Outpatient (CLI) | payer MEDICARE, OTHER ==
[~2021-08-22] VITALS: Ht 152.4 cm; Wt 78.0 kg
[~2021-08-22] MED LIST changes: -BRIN8DRO OP
[2021-08-22 15:51] VITALS: BP 135/60
== END | disposition home or self-care (01) ==
LOC: SRCNTR 10:20
PROVIDERS: ATTEND Internal Medicine Critical Care Medicine
DX: Z09 Encounter for follow-up examination after completed treatment for conditions other than malignant neoplasm (principal); I10 Essential (primary) hypertension; H40.9 Unspecified glaucoma; N35.92 Unspecified urethral stricture, female; R09.82 Postnasal drip; J44.1 Chronic obstructive pulmonary disease with (acute) exacerbation; J30.9 Allergic rhinitis, unspecified; M81.0 Age-related osteoporosis without current pathological fracture; Z86.16 Personal history of COVID-19
CPT/HCPCS: G0463; Z7500

== ENCOUNTER → 2021-09-25 | Outpatient (CLI) | payer MEDICARE, OTHER ==
[~2021-09-25] VITALS: Ht 152.4 cm; Wt 78.2 kg
[2021-09-25 14:51] VITALS: BP 152/74
== END | disposition home or self-care (01) ==
LOC: SRCNTR 14:32
PROVIDERS: ATTEND Internal Medicine Cardiovascular Disease
DX: Z09 Encounter for follow-up examination after completed treatment for conditions other than malignant neoplasm (principal); I10 Essential (primary) hypertension; E78.5 Hyperlipidemia, unspecified; J44.9 Chronic obstructive pulmonary disease, unspecified; R07.89 Other chest pain; I48.0 Paroxysmal atrial fibrillation
CPT/HCPCS: G0463

== ENCOUNTER → 2021-11-22 | Outpatient (CLI) | payer MEDICARE, OTHER ==
[~2021-11-22] MED LIST changes: +OMEP20 PO; -TIMO.5OS OD; +TIMO5DRO21 OD
[2021-11-22 09:28] LABS: BASOPHILS % (AUTO) 0.3 % (0.0-2.0); EOSINOPHILS % (AUTO) 5.1 % (1.0-6.0); HEMOGLOBIN 11.9 g/dL (12.0-16.0); LYMPHOCYTES # (AUTO) 1.4 K/uL (1.0-4.8); LYMPHOCYTES % (AUTO) 34.6 % (22.0-44.0); MEAN CORPUSCULAR HEMOGLOBIN 28.6 pg (26.0-34.0); MEAN CORPUSCULAR HGB CONC 33.2 G/dL (31.0-37.0); MEAN CORPUSCULAR VOLUME 86 fL (80-100); MONOCYTES # (AUTO) 0.3 K/uL (0.1-1.0); MONOCYTES % (AUTO) 7.7 % (2.0-9.0); NEUTROPHILS # (AUTO) 2.1 K/uL (1.8-7.7); NEUTROPHILS % (AUTO) 52.3 % (40.0-70.0); PLATELET COUNT (AUTO) 165 K/uL (150-450); RED BLOOD CELL COUNT(AUTO) 4.18 MIL/uL (4.00-5.20); RED CELL DISTRIBUTION WIDTH 14.5 % (11.5-14.5)
[2021-11-22 09:37] LABS: HEMOGLOBIN A1C 5.2 % (3.8-5.6)
[2021-11-22 09:43] LABS: ALBUMIN 3.7 g/dL (3.4-5.0); CALCIUM, TOTAL 8.9 mg/dL (8.8-10.5); CHOL/HDL RATIO 2.5 (3.9-5.7); CREATININE 1.04 mg/dL (0.60-1.30); MAGNESIUM 1.8 mg/dL (1.80-2.40); PHOSPHORUS 3.4 mg/dL (2.5-4.9); POTASSIUM 3.9 mmol/L (3.5-5.1)
[2021-11-22 14:29] LABS: APPEARANCE,URINE HAZY (CLEAR); BILIRUBIN,URINE NEGATIVE (NEGATIVE); GLUCOSE, URINE (UA) NEGATIVE (NEGATIVE); KETONES,URINE NEGATIVE (NEGATIVE); LEUKOCYTE ESTERASE ,URINE MODERATE (NEGATIVE); NITRATE,URINE NEGATIVE (NEGATIVE); OCCULT BLOOD,URINE TRACE (NEGATIVE); PROTEIN,URINE TRACE mg/dL (NEGATIVE); SPECIFIC GRAVITIY, URINE 1.019 (1.003-1.030); UROBILINOGEN,URINE <=1.0 mg/dL (<=1.0)
[2021-11-22 14:39] LABS: CREATININE,URINE RANDOM 140.3 mg/dL (30.0-125.0)
[2021-11-22 14:42] LABS: BACTERIA,URINE None Seen /HPF (None Seen); RBC,URINE 0-2 /HPF (0-2); SQUAMOUS EPITHELIAL CELL,UR Rare /LPF (None Seen)
[2021-11-22 14:45] LABS: PROTEIN,URINE RANDOM 32 mg/dL (0-11.9)
== END | disposition home or self-care (01) ==
LOC: LABMN 08:52
PROVIDERS: ATTEND Internal Medicine Nephrology
DX: I12.9 Hypertensive chronic kidney disease with stage 1 through stage 4 chronic kidney disease, or unspecified chronic kidney disease (principal); N18.31 Chronic kidney disease, stage 3a; R80.9 Proteinuria, unspecified; I47.9 Paroxysmal tachycardia, unspecified; K21.9 Gastro-esophageal reflux disease without esophagitis; Z79.899 Other long term (current) drug therapy
CPT/HCPCS: 80061; 80069; 81001; 82043; 82570; 83036; 83735; 84156; 85025

== ENCOUNTER → 2021-11-27 | Outpatient (CLI) | payer MEDICARE, OTHER ==
[~2021-11-27] VITALS: Ht 154.9 cm; Wt 80.3 kg
[2021-11-27 14:56] VITALS: BP 148/62
== END | disposition home or self-care (01) ==
LOC: SRCNTR 14:44
PROVIDERS: ATTEND Internal Medicine Cardiovascular Disease
DX: I10 Essential (primary) hypertension (principal); Z09 Encounter for follow-up examination after completed treatment for conditions other than malignant neoplasm; E78.5 Hyperlipidemia, unspecified; J44.9 Chronic obstructive pulmonary disease, unspecified; R07.89 Other chest pain; I48.0 Paroxysmal atrial fibrillation
CPT/HCPCS: G0463; Z7500

== ENCOUNTER → 2021-12-05 | Outpatient (CLI) | payer MEDICARE, OTHER ==
[~2021-12-05] MED LIST changes: -PANT-31 PO
[2021-12-05 12:51] LABS: CALCIUM, TOTAL 8.6 mg/dL (8.8-10.5); CREATININE 1.19 mg/dL (0.60-1.30); THYROID STIMULATING HORMONE 1.51 uIU/mL (0.36-3.74)
[2021-12-05 13:52] LABS: POTASSIUM 4.3 mmol/L (3.5-5.1)
== END | disposition home or self-care (01) ==
LOC: LABMN 11:33
PROVIDERS: ATTEND Internal Medicine Nephrology
DX: N18.31 Chronic kidney disease, stage 3a (principal); E87.1 Hypo-osmolality and hyponatremia; R80.9 Proteinuria, unspecified; I47.1 Supraventricular tachycardia; N39.0 Urinary tract infection, site not specified
CPT/HCPCS: 80048; 82533; 83930; 83935; 84443

== ENCOUNTER → 2022-04-30 | Outpatient (CLI) | payer MEDICARE, OTHER ==
[2022-04-30 10:57] LABS: APPEARANCE,URINE CLEAR (CLEAR); BILIRUBIN,URINE NEGATIVE (NEGATIVE); GLUCOSE, URINE (UA) NEGATIVE (NEGATIVE); KETONES,URINE NEGATIVE (NEGATIVE); LEUKOCYTE ESTERASE ,URINE NEGATIVE (NEGATIVE); NITRATE,URINE NEGATIVE (NEGATIVE); OCCULT BLOOD,URINE NEGATIVE (NEGATIVE); PH,URINE 6.5 (5.0-8.0); PROTEIN,URINE NEGATIVE (NEGATIVE); SPECIFIC GRAVITIY, URINE 1.008 (1.003-1.030); UROBILINOGEN,URINE <=1.0 mg/dL (<=1.0)
[2022-04-30 10:58] LABS: CREATININE,URINE RANDOM 35.2 mg/dL (30.0-125.0); PROTEIN,URINE RANDOM 11 mg/dL (0-11.9)
[2022-04-30 10:58] LABS: BASOPHILS % (AUTO) 0.5 % (0.0-2.0); EOSINOPHILS % (AUTO) 6.7 % (1.0-6.0); HEMATOCRIT 32.8 % (36-46); LYMPHOCYTES # (AUTO) 1.2 K/uL (1.0-4.8); LYMPHOCYTES % (AUTO) 32.6 % (22.0-44.0); MEAN CORPUSCULAR HEMOGLOBIN 28.6 pg (26.0-34.0); MEAN CORPUSCULAR HGB CONC 33.4 G/dL (31.0-37.0); MEAN CORPUSCULAR VOLUME 86 fL (80-100); MONOCYTES # (AUTO) 0.4 K/uL (0.1-1.0); MONOCYTES % (AUTO) 10.8 % (2.0-9.0); NEUTROPHILS # (AUTO) 1.8 K/uL (1.8-7.7); NEUTROPHILS % (AUTO) 49.4 % (40.0-70.0); PLATELET COUNT (AUTO) 231 K/uL (150-450); RED BLOOD CELL COUNT(AUTO) 3.83 MIL/uL (4.00-5.20); RED CELL DISTRIBUTION WIDTH 14.6 % (11.5-14.5)
[2022-04-30 11:11] LABS: ALBUMIN 3.2 g/dL (3.4-5.0); CALCIUM, TOTAL 8.7 mg/dL (8.8-10.5); CHOL/HDL RATIO 2.4 (3.9-5.7); CREATININE 1.08 mg/dL (0.60-1.30); PHOSPHORUS 3.3 mg/dL (2.5-4.9); POTASSIUM 3.6 mmol/L (3.5-5.1)
== END | disposition home or self-care (01) ==
LOC: LABMN 10:04 → EEVIPCON 10:04
PROVIDERS: ATTEND Internal Medicine Nephrology
DX: I12.9 Hypertensive chronic kidney disease with stage 1 through stage 4 chronic kidney disease, or unspecified chronic kidney disease (principal); N18.31 Chronic kidney disease, stage 3a; I47.1 Supraventricular tachycardia
CPT/HCPCS: 80061; 80069; 81003; 82043; 82570; 84156; 85025

== ENCOUNTER → 2022-05-09 | Outpatient (CLI) | payer MEDICARE, OTHER | END | disposition home or self-care (01) | LOC: RADMN 11:09 | PROVIDERS: ATTEND Internal Medicine Geriatric Medicine | DX: R05.9 Cough, unspecified (principal); M47.814 Spondylosis without myelopathy or radiculopathy, thoracic region | CPT/HCPCS: 71046 ==

== ENCOUNTER → 2022-06-12 | Outpatient (CLI) | payer MEDICARE, OTHER ==
[~2022-06-12] VITALS: Ht 154.9 cm; Wt 79.3 kg
[~2022-06-12] MED LIST changes: +AMLO-257 PO; +FLUT16SP NASAL
[2022-06-12 11:55] VITALS: BP 152/54
== END | disposition home or self-care (01) ==
LOC: SRCNTR 11:31
PROVIDERS: ATTEND Internal Medicine Pulmonary Disease
DX: J44.1 Chronic obstructive pulmonary disease with (acute) exacerbation (principal); I10 Essential (primary) hypertension; J30.9 Allergic rhinitis, unspecified; M81.0 Age-related osteoporosis without current pathological fracture; I48.92 Unspecified atrial flutter; U09.9 Post COVID-19 condition, unspecified
CPT/HCPCS: G0463; Z7500

== ENCOUNTER → 2022-09-30 | Outpatient (CLI) | payer MEDICARE, OTHER ==
[~2022-09-30] VITALS: Ht 154.9 cm; Wt 80.0 kg
[2022-09-30 12:48] VITALS: BP 137/57; PULSE 64; RESP 22; TEMP 98.1; O2SAT 98
== END | disposition home or self-care (01) ==
LOC: SRCNTR 12:22
PROVIDERS: ATTEND Internal Medicine Pulmonary Disease
DX: I10 Essential (primary) hypertension (principal); M81.0 Age-related osteoporosis without current pathological fracture; H40.9 Unspecified glaucoma; N35.92 Unspecified urethral stricture, female; R09.82 Postnasal drip; J45.909 Unspecified asthma, uncomplicated
CPT/HCPCS: G0463; Z7500

== ENCOUNTER → 2022-10-11 | Outpatient (CLI) | payer MEDICARE, OTHER | END | disposition home or self-care (01) | LOC: MSR 11:31 | PROVIDERS: ATTEND Internal Medicine Pulmonary Disease | DX: Z01.89 Encounter for other specified special examinations (principal); J44.9 Chronic obstructive pulmonary disease, unspecified | CPT/HCPCS: 71046 ==

== ENCOUNTER → 2022-11-04 | Outpatient (CLI) | payer MEDICARE, OTHER ==
[~2022-11-04] VITALS: Ht 152.4 cm; Wt 80.0 kg
[2022-11-04 13:52] VITALS: BP 132/59; PULSE 57; RESP 15; TEMP 97.6; O2SAT 98
== END | disposition home or self-care (01) ==
LOC: SRCNTR 13:38
PROVIDERS: ATTEND Internal Medicine Pulmonary Disease
DX: J44.1 Chronic obstructive pulmonary disease with (acute) exacerbation (principal); I10 Essential (primary) hypertension; J31.0 Chronic rhinitis; N36.9 Urethral disorder, unspecified; M81.0 Age-related osteoporosis without current pathological fracture; I48.92 Unspecified atrial flutter; U09.9 Post COVID-19 condition, unspecified
CPT/HCPCS: G0463; Z7500

== ENCOUNTER → 2022-11-07 | Outpatient (CLI) | payer MEDICARE, OTHER ==
[2022-11-07 09:57] LABS: BASOPHILS % (AUTO) 0.3 % (0.0-2.0); EOSINOPHILS % (AUTO) 4.4 % (1.0-6.0); HEMATOCRIT 35.8 % (36-46); HEMOGLOBIN 11.8 g/dL (12.0-16.0); LYMPHOCYTES # (AUTO) 1.4 K/uL (1.0-4.8); LYMPHOCYTES % (AUTO) 35.6 % (22.0-44.0); MEAN CORPUSCULAR VOLUME 88 fL (80-100); MONOCYTES # (AUTO) 0.4 K/uL (0.1-1.0); MONOCYTES % (AUTO) 8.9 % (2.0-9.0); NEUTROPHILS % (AUTO) 50.8 % (40.0-70.0); PLATELET COUNT (AUTO) 161 K/uL (150-450); RED BLOOD CELL COUNT(AUTO) 4.08 MIL/uL (4.00-5.20); RED CELL DISTRIBUTION WIDTH 15.1 % (11.5-14.5)
[2022-11-07 10:01] LABS: PROTEIN,URINE RANDOM 13 mg/dL (0-11.9)
[2022-11-07 10:04] LABS: HEMOGLOBIN A1C 5.1 % (3.8-5.6)
[2022-11-07 10:08] LABS: APPEARANCE,URINE CLEAR (CLEAR); BILIRUBIN,URINE NEGATIVE (NEGATIVE); GLUCOSE, URINE (UA) NEGATIVE (NEGATIVE); KETONES,URINE NEGATIVE (NEGATIVE); LEUKOCYTE ESTERASE ,URINE NEGATIVE (NEGATIVE); NITRATE,URINE NEGATIVE (NEGATIVE); OCCULT BLOOD,URINE NEGATIVE (NEGATIVE); PH,URINE 5.5 (5.0-8.0); PROTEIN,URINE NEGATIVE (NEGATIVE); SPECIFIC GRAVITIY, URINE 1.012 (1.003-1.030); UROBILINOGEN,URINE <=1.0 mg/dL (<=1.0)
[2022-11-07 10:11] LABS: ALBUMIN 3.5 g/dL (3.4-5.0); CALCIUM, TOTAL 8.7 mg/dL (8.8-10.5); CHOL/HDL RATIO 2.3 (3.9-5.7); CREATININE 1.18 mg/dL (0.60-1.30); PHOSPHORUS 3.6 mg/dL (2.5-4.9); POTASSIUM 4.3 mmol/L (3.5-5.1)
== END | disposition home or self-care (01) ==
LOC: LABMN 09:30
PROVIDERS: ATTEND Internal Medicine Nephrology
DX: I12.9 Hypertensive chronic kidney disease with stage 1 through stage 4 chronic kidney disease, or unspecified chronic kidney disease (principal); N18.31 Chronic kidney disease, stage 3a; N39.0 Urinary tract infection, site not specified; K21.9 Gastro-esophageal reflux disease without esophagitis; R80.9 Proteinuria, unspecified; Z79.899 Other long term (current) drug therapy
CPT/HCPCS: 80061; 80069; 81003; 82043; 82570; 83036; 83735; 84156; 85025

== ENCOUNTER → 2023-02-17 | Outpatient (CLI) | payer MEDICARE, OTHER ==
[~2023-02-17] VITALS: Ht 152.4 cm; Wt 79.0 kg
[~2023-02-17] MED LIST changes: +INFLUENZA VIRUS VACCINE QVS 2023-24 (6MO+)/PF 60 MCG/0.5 ML SYRINGE IM. ONE
[2023-02-17 12:18] VITALS: BP 137/61; PULSE 56; RESP 16; TEMP 98.3; O2SAT 100
== END | disposition home or self-care (01) ==
LOC: SRCNTR 11:58
PROVIDERS: ATTEND Internal Medicine Pulmonary Disease
DX: J44.1 Chronic obstructive pulmonary disease with (acute) exacerbation (principal); N36.9 Urethral disorder, unspecified; M81.0 Age-related osteoporosis without current pathological fracture; I48.92 Unspecified atrial flutter; Z23 Encounter for immunization; K21.9 Gastro-esophageal reflux disease without esophagitis; I12.9 Hypertensive chronic kidney disease with stage 1 through stage 4 chronic kidney disease, or unspecified chronic kidney disease; N18.31 Chronic kidney disease, stage 3a; Z79.899 Other long term (current) drug therapy
CPT/HCPCS: 90686; 90471; G0463

== ENCOUNTER → 2023-05-09 | Outpatient (CLI) | payer MEDICARE, OTHER ==
[~2023-05-09] MED LIST changes: -INFLUENZA VIRUS VACCINE QVS 2023-24 (6MO+)/PF 60 MCG/0.5 ML SYRINGE IM. ONE
[2023-05-09 10:28] LABS: APPEARANCE,URINE TURBID (CLEAR); BASOPHILS % (AUTO) 0.3 % (0.0-2.0); BILIRUBIN,URINE NEGATIVE (NEGATIVE); COLOR,URINE YELLOW (YELLOW); EOSINOPHILS % (AUTO) 1.8 % (1.0-6.0); GLUCOSE, URINE (UA) NEGATIVE (NEGATIVE); HEMATOCRIT 35.4 % (36-46); HEMOGLOBIN 11.5 g/dL (12.0-16.0); KETONES,URINE NEGATIVE (NEGATIVE); LEUKOCYTE ESTERASE ,URINE LARGE (NEGATIVE); LYMPHOCYTES # (AUTO) 1.3 K/uL (1.0-4.8); MEAN CORPUSCULAR HEMOGLOBIN 28.4 pg (26.0-34.0); MEAN CORPUSCULAR HGB CONC 32.5 G/dL (31.0-37.0); MEAN CORPUSCULAR VOLUME 88 fL (80-100); MONOCYTES # (AUTO) 0.6 K/uL (0.1-1.0); MONOCYTES % (AUTO) 7.3 % (2.0-9.0); NEUTROPHILS # (AUTO) 6.6 K/uL (1.8-7.7); NEUTROPHILS % (AUTO) 75.6 % (40.0-70.0); NITRATE,URINE NEGATIVE (NEGATIVE); OCCULT BLOOD,URINE MODERATE (NEGATIVE); PH,URINE 6.5 (5.0-8.0); PLATELET COUNT (AUTO) 176 K/uL (150-450); PROTEIN,URINE 100-200,SEE CONFIRM mg/dL (NEGATIVE); RED BLOOD CELL COUNT(AUTO) 4.05 MIL/uL (4.00-5.20); RED CELL DISTRIBUTION WIDTH 15.4 % (11.5-14.5); SPECIFIC GRAVITIY, URINE 1.014 (1.003-1.030); UROBILINOGEN,URINE <=1.0 mg/dL (<=1.0); WHITE BLOOD COUNT (AUTO) 8.7 K/uL (4.5-11.0)
[2023-05-09 10:32] LABS: CREATININE,URINE RANDOM 127.5 mg/dL (30.0-125.0)
[2023-05-09 10:35] LABS: ALBUMIN 3.6 g/dL (3.4-5.0); CALCIUM, TOTAL 9.2 mg/dL (8.8-10.5); CHOL/HDL RATIO 2.4 (3.9-5.7); CREATININE 1.31 mg/dL (0.60-1.30); MAGNESIUM 1.9 mg/dL (1.80-2.40); PHOSPHORUS 3.6 mg/dL (2.5-4.9)
[2023-05-09 11:22] LABS: BACTERIA,URINE Many /HPF (None Seen); SQUAMOUS EPITHELIAL CELL,UR Few /LPF (None Seen); SULFOSALICYLIC ACID,URINE 3+ (Negative); WBC,URINE 51-100 /HPF (0-5)
[2023-05-10 12:07] LABS: CREATININE, URINE (mALB) 118.4 mg/dL (Not Estab.)
== END | disposition home or self-care (01) ==
LOC: LABMN 09:53
PROVIDERS: ATTEND Internal Medicine Geriatric Medicine
DX: I13.10 Hypertensive heart and chronic kidney disease without heart failure, with stage 1 through stage 4 chronic kidney disease, or unspecified chronic kidney disease (principal); I12.9 Hypertensive chronic kidney disease with stage 1 through stage 4 chronic kidney disease, or unspecified chronic kidney disease; N18.31 Chronic kidney disease, stage 3a; I48.21 Permanent atrial fibrillation; N39.0 Urinary tract infection, site not specified; R80.9 Proteinuria, unspecified; E78.5 Hyperlipidemia, unspecified
CPT/HCPCS: 80061; 80069; 81001; 81002; 82043; 82570; 83735; 85025; 87086; 87186

== ENCOUNTER → 2023-10-01 | Outpatient (CLI) | payer MEDICARE, OTHER ==
[~2023-10-01] VITALS: Ht 152.4 cm; Wt 77.0 kg
[2023-10-01 11:36] VITALS: BP 149/60; PULSE 54; RESP 19; TEMP 98.4; O2SAT 99
== END | disposition home or self-care (01) ==
LOC: SRCNTR 11:20
PROVIDERS: ATTEND Internal Medicine Pulmonary Disease
DX: J44.9 Chronic obstructive pulmonary disease, unspecified (principal); J30.9 Allergic rhinitis, unspecified; I10 Essential (primary) hypertension; M81.0 Age-related osteoporosis without current pathological fracture; I48.92 Unspecified atrial flutter; N36.9 Urethral disorder, unspecified; Z86.16 Personal history of COVID-19; Z79.899 Other long term (current) drug therapy; Z88.8 Allergy status to other drugs, medicaments and biological substances; Z98.890 Other specified postprocedural states
CPT/HCPCS: G0463

== ENCOUNTER → 2023-12-11 | Outpatient (CLI) | payer MEDICARE, OTHER ==
[~2023-12-11] MED LIST changes: -ACET-66 PO
== END | disposition home or self-care (01) ==
LOC: RADMN 14:50
PROVIDERS: ATTEND Internal Medicine Geriatric Medicine
DX: M17.12 Unilateral primary osteoarthritis, left knee (principal); M77.32 Calcaneal spur, left foot; M25.562 Pain in left knee
CPT/HCPCS: 73562-TC

== ENCOUNTER → 2024-07-21 | Outpatient (CLI) | payer MEDICARE, OTHER ==
[~2024-07-21] VITALS: Ht 152.4 cm; Wt 79.0 kg
[~2024-07-21] MED LIST changes: -BUDE180H IH; +OMEP-148 PO; -OMEP20 PO; +[UNRECOGNIZED DRUG - CODE] IH
[2024-07-21 11:48] VITALS: BP 149/54; PULSE 55; RESP 17; TEMP 98.3; O2SAT 99
== END | disposition home or self-care (01) ==
LOC: SRCNTR 11:33
PROVIDERS: ATTEND Internal Medicine Pulmonary Disease
DX: I10 Essential (primary) hypertension (principal); E86.0 Dehydration; H40.9 Unspecified glaucoma; I47.10 Supraventricular tachycardia, unspecified; I48.92 Unspecified atrial flutter; I70.0 Atherosclerosis of aorta; J30.9 Allergic rhinitis, unspecified; J44.1 Chronic obstructive pulmonary disease with (acute) exacerbation; M43.16 Spondylolisthesis, lumbar region; M43.17 Spondylolisthesis, lumbosacral region; M81.0 Age-related osteoporosis without current pathological fracture; N30.90 Cystitis, unspecified without hematuria; R13.10 Dysphagia, unspecified; Z28.310 Unvaccinated for COVID-19; Z28.39 Other underimmunization status; Z77.22 Contact with and (suspected) exposure to environmental tobacco smoke (acute) (chronic); Z79.01 Long term (current) use of anticoagulants; Z79.51 Long term (current) use of inhaled steroids; Z79.899 Other long term (current) drug therapy; Z82.49 Family history of ischemic heart disease and other diseases of the circulatory system; Z86.73 Personal history of transient ischemic attack (TIA), and cerebral infarction without residual deficits; Z88.1 Allergy status to other antibiotic agents; Z88.6 Allergy status to analgesic agent; Z90.710 Acquired absence of both cervix and uterus
CPT/HCPCS: G0463; Z7500

== ENCOUNTER → 2024-11-19 | Outpatient (CLI) | payer MEDICARE, OTHER | END | disposition home or self-care (01) | LOC: RADPV 09:30 | PROVIDERS: ATTEND Internal Medicine Cardiovascular Disease | DX: I08.3 Combined rheumatic disorders of mitral, aortic and tricuspid valves (principal); I49.9 Cardiac arrhythmia, unspecified; R00.2 Palpitations | CPT/HCPCS: 93306 ==